=== PATIENT | female | born 1935 | race Hispanic/Latino ===

== ENCOUNTER 2018-12-06 21:18 | Inpatient (IN) ==
--- NOTE | 2018-12-06 23:10 | PROVIDER DOCUMENTATION ---
This chart was entered by Mitzi Lynne Scribe, acting as scribe for Rahul Caputo MD. HPI-General Adult - General Stated Complaint: FALL Time Seen by Provider: 12/06/18 22:10 Source: patient, EMS Allergies/Adverse Reactions: Patient Allergies Allergy/AdvReac Type Severity Reaction Status Date / Time latex Allergy Mild HIVES Verified 10/22/18 01:22 Home Medications: Home Medication List Medication Instructions Recorded Confirmed Last Taken Type ATORVAstatin [Lipitor] 10 mg PO QHS 12/05/18 12/05/18 Unknown History Albuterol Sulfate [Proair Hfa] 2 puff INHALATION DAILY 12/05/18 12/05/18 Unknown History Donepezil [Aricept] 5 mg PO DAILY 12/05/18 12/05/18 Unknown History Insulin Glargine,Hum.rec.anlog 25 units SQ HS 12/05/18 12/05/18 Unknown History [Lantus Solostar] Multivit-Min/Folic Acid/Vit K1 1 tab PO DAILY 12/05/18 12/05/18 Unknown History [Multi For Her 50 Plus Softgel] Mv,Calcium,Min/Iron/Folic/Vitk 12/05/18 Unknown History [Multi For Her Tablet] Oxycodone HCl 5 mg PO Q6H PRN PRN 12/05/18 12/05/18 Unknown History Whbflgbxxwfy-Gnbm-Rjzoqziq,Iso 4.5 gm IV Q8HR 12/05/18 12/05/18 Unknown History [Zosyn 4.5 gm Pre-Mix Bag] Sertraline [Zoloft] 50 mg PO DAILY 12/05/18 12/05/18 Unknown History Sitagliptin Phos/Metformin HCl 1 tab PO BID 12/05/18 12/05/18 Unknown History [Janumet 50-1,000 mg Tablet] - History of Present Illness -Gen Adult Nature of Presenting Problems: pt is a 83 yr old female presenting via EMS post fall. unknown cause of fall, pt denies any injury, pt was found leaning against wall, unsure of how pt landed. pt denies any neck or back pain. Location of Pain/Injury: reports: none Quality of Pain: reports: none Onset/Duration: reports: unsure Context/Activities at Onset: reports: recent trauma history (fall) Modifying Factors: improves with: nothing Associated Symptoms: denies: back/neck pain, chest pain, joint pain, nausea, shortness of breath, vomiting Recently seen or treated by another doctor?: Yes (seen here 1 day ago for AMS) Review of Systems - Adult - REVIEW OF SYSTEMS - ADULT ROS:: limited due to language barrier Constitutional: reports: no symptoms reported Eyes: reports: no symptoms reported Ears, Nose, Mouth & Throat: reports: no symptoms reported Cardiovascular: denies: chest pain, syncope Respiratory: denies: shortness of breath Gastrointestinal: denies: abdominal pain, nausea, vomiting Genitourinary: reports: no symptoms reported Musculoskeletal: denies: back pain, joint pain, neck pain Integumentary: reports: no symptoms reported Neurological: reports: no symptoms reported Psychiatric: reports: no symptoms reported Endocrine: reports: no symptoms reported Hematologic/Lymphatic: reports: no symptoms reported Allergic/Immunologic: reports: no symptoms reported All Other Systems: Reviewed and Negative Past History - Adult - PAST MEDICAL HISTORY-ADULT Review of Records: reports: Old Records Reviewed, Nursing Assessment Review, Medications Reviewed, Social history reviewed & non-contributory. Major Childhood Illnesses: reports: denies history Cardiovascular: reports: denies history Respiratory: reports: denies history Gastrointestinal: reports: denies history Obstetrical/Gynecological: reports: denies history Genitourinary: reports: denies history Musculoskeletal: reports: denies history Neurological: reports: denies history Endocrine/Immune: reports: denies history Other Conditions: reports: denies history - IMMUNIZATION STATUS Childhood Immunizations: See Nurse Assessment Flu Vaccine: See Nurse Assessment - FAMILY HISTORY Family History: reviewed, not pertinent - SOCIAL HISTORY Living Situation: family Physical Exam-General - PHYSICAL EXAM-ADULT Initial Vital Signs Reviewed: Yes - CONSTITUTIONAL General Appearance: appears well, alert, no apparent distress - EYES Eyes: PERRL/EOMI - HEAD, EARS, NOSE, MOUTH & THROAT HENMT: normocephalic/atraumatic, moist mucous membranes - NECK Neck: non-tender, full range of motion, supple, normal inspection - RESPIRATORY Respiratory: chest non-tender, lungs clear, normal breath sounds - CARDIOVASCULAR Cardiovascular: normal peripheral pulses, regular rate, rhythm, no edema - GASTROINTESTINAL (ABDOMEN) Abdominal Exam: normal bowel sounds, non tender, soft - LYMPHATIC Lymphatic: no adenopathy - MUSCULOSKELETAL Back Exam: normal inspection, no CVA tenderness, no vertebral tenderness Extremity: tenderness (with movement, LLE), other (Left 4th toe amputation.). negative: normal range of motion (decreased ROM LLE), deformity - SKIN Integumentary: normal color, normal turgor, warm/dry, other (healing wound at the place of amputated 4th left toe.) - NEUROLOGIC Neurologic: grossly normal - PSYCHIATRIC Psych/Mental Status: normal mood/affect Progress - PLAN OF CARE/RESULTS Progress/Plan/Lab Results: Orders Category Date Time Status CT HEAD/C-SPINE W/O CONTRAST [CT] Stat Exams 12/06/18 22:[address] PELVIS W/O CONTRAST [CT] Stat Exams 12/06/18 22:11 Ordered FEMUR MIN 2 VIEWS LEFT [RAD] Stat Exams 12/06/18 22:11 Ordered family not at bedside. RN tried calling family, no answer - CT/MRI 1 CT Study: Pelvis Impression: Abnormal, See EMR Report 2 CT Study: Pelvis Impression: Abnormal, See EMR Report 3 CT Study: Head Impression: Normal, See EMR Report - CONSULTS/PCP/HOSPITALIST Notification #1 *Consult/PCP/Hospitalist*: Dr verma Time Discussed: 00:10 Reason/Comments: consult for plan of care Consult Disposition: Admit (admit to hospitalist) #2 Consult: Dr Echevarria Time Discussed: 00:50 Consult Disposition: Admit Departure - Departure Date of Disposition Decision: 12/07/18 Time of Disposition Decision: 00:58 DIAGNOSIS: Fracture of left inferior pubic ramus, Fall, Compression fracture of T1 vertebra, Compression fracture of T2 vertebra Disposition: ADMITTED INPATIENT 09 Certified Medical Emergency: Emergent Condition: Stable Referrals and Follow-Ups: None,PCP [Primary Care Provider] - - Critical Care Note This patient required my direct & personal management of CC.: No Attestation - Physician/ ANITA Attestation Patient care was provided by Advanced Practice Provider:: No The physician spent face to face time with patient:: Yes Advanced Practice Provider documentation review:: Supervising physician onsite and consulted in the evaluation and care of this patient. The physician did have a face to face encounter with the patient. This chart was documented by the igor scribe, (Mitzi Lynne Scribe) and accurately reflects the services I performed and decisions made by me, Rahul Caputo MD, as attested by the provider's signature.
[2018-12-07 02:56] LABS: INR 1.08; PROTIME 14.2 Seconds (11.0-16.0)
[2018-12-07 02:57] LABS: PTT 27.6 Seconds (22.3-41.8)
[2018-12-07 03:03] LABS: URINE SOURCE CATH
[2018-12-07 03:10] LABS: BILIRUBIN URINE NEGATIVE (NEGATIVE); BLOOD URINE SMALL (NEGATIVE); COLOR YELLOW; GLUCOSE URINE TRACE mg/dL (NEGATIVE); KETONE URINE NEGATIVE (NEGATIVE); LEUKOCYTES URINE NEGATIVE (NEGATIVE); NITRITE URINE NEGATIVE (NEGATIVE); PH URINE 5.5; PROTEIN URINE 100 mg/dL (NEGATIVE); SP GRAVITY URINE 1.023; TURBIDITY URINE CLEAR (CLEAR); UROBILINOGEN URINE NORMAL (NORMAL)
[2018-12-07 03:11] LABS: UR EPITHELIAL CELLS <10 /HPF (<10); URINE BACTERIA NEGATIVE /HPF; URINE RBC <10 /HPF (<10); URINE WBC <10 /HPF (<10)
[2018-12-07] MEDS: NS 1,000 ML IV SCH ×2 (03:12→17:44)
[2018-12-07] MEDS: ZOFRAN IV PRN ×2 (03:16→21:39)
[2018-12-07] MEDS: MORPHINE IV PRN ×2 (03:16→21:36)
[2018-12-07 03:22] LABS: AGAP 13; ALBUMIN 3.7 g/dL (3.5-5.0); ALKALINE PHOSPHATASE 74 U/L (32-104); BUN 18 mg/dL (8-22); CALCIUM 9.1 mg/dL (8.8-10.2); CHLORIDE 103 mmol/L (98-107); COSMO 283; CREATININE 0.5 mg/dL (0.5-0.9); ESTIMATED GFR > 60; GLUCOSE 171 mg/dL (70-104); GOT 22 U/L (10-30); GPT 14 U/L (10-36); POTASSIUM 4.3 mmol/L (3.5-5.1); SODIUM 139 mmol/L (136-145); TCO2 23 mmol/L (25-35); TOTAL BILIRUBIN 0.48 mg/dL (0.20-1.00); TOTAL PROTEIN 7.3 g/dL (6.3-8.3)
[2018-12-07 03:25] LABS: BASO# 0.02 X1000 (0.0-0.2); BASO% 0.2 % (0.0-0.8); EOS# 0.14 X1000 (0.0-0.7); EOS% 1.3 % (0.0-10.0); HEMATOCRIT 34.2 % (37.0-47.0); IMM GRAN# 0.03 X1000 (0.0-0.04); IMM GRAN% 0.3 % (0.0-0.5); LYMPH# 1.46 X1000 (1.2-3.4); LYMPH% 13.5 % (20.5-51.1); MCH 28.8 PG (27-31); MCHC 32.2 g/dL (33-37); MCV 89.5 FL (81-99); MONO# 0.76 X1000 (0.11-0.59); MONO% 7.1 % (1.7-9.3); NEUT# 8.37 X1000 (1.4-6.5); NEUT% 77.6 % (42.2-75.2); PLT 209 X1000 (130-400); RBC 3.82 XMIL (4.2-5.4); RDW 14.9 % (11.5-14.5); WBC 10.78 X1000 (4.8-10.8)
--- NOTE | 2018-12-07 06:43 | HISTORY AND PHYSICAL ---
CHIEF COMPLAINT: Fall. HISTORY OF PRESENT ILLNESS: This is an elderly demented female, 83 years old. She comes in after having a fall, unknown cause of the fall. No family was at bedside. [employer] DAHL helped with the translation. Apparently the patient was found leaning against the wall. Unsure how long the patient was there or how she landed. Stated that she did not think she hit her head or have loss of consciousness. Again, very poor historian related to dementia. She has no complaint at this time except a small amount of pain in her hip. I believe that she does have a past medical history of diabetes mellitus, hypertension, and Alzheimer's. This was all the information I could find out about the patient. A CT scan was obtained of the pelvis that showed a fracture of the left inferior pubic ramus. CT of her head, the report is pending, but it was preliminary normal. She will be admitted for evaluation and treatment. PAST MEDICAL HISTORY: See HPI. This may not be a complete list. PREVIOUS SURGICAL HISTORY: 1. Bilateral knee surgery. 2. Left third and fourth digit removed on her lower extremity, I believe this was 2 days ago; however, I am not sure at which hospital. ALLERGIES: Latex. She lives at home with her daughter. No family at bedside. She states no alcohol, tobacco or illicit drugs. FAMILY HISTORY: She was unable to give us this information. HOME MEDICATIONS: She states that she does take home medications; however, she does not know which medications. PHYSICAL EXAMINATION: VITAL SIGNS: Temp 97.7 degrees, pulse 73, respirations 15, blood pressure 196/87, oxygen saturation 97% on room air. GENERAL: Pleasantly confused 83-year-old female lying in the ER stretcher. Oriented only to person. She is in no acute distress. HEENT: Head is atraumatic, normocephalic. Pupils equal, round and reactive to light. Extraocular eye movement is intact. Sclerae anicteric. Conjunctivae mildly pale. Oral mucosa is mildly dry. NECK: Supple. No JVD. Trachea is midline. No cervical lymphadenopathy. CARDIAC: S1, S2 appreciated. No murmurs, gallops, rubs. LUNGS: Clear to auscultation bilaterally. No rhonchi, wheezes, rales. Symmetrical rise and fall of respirations. ABDOMEN: Soft, nondistended, nontender. Bowel sounds present all 4 quadrants. Normoactive. No pulsatile mass. No organomegaly. EXTREMITIES: No cyanosis, clubbing or edema. 1+ pedal pulses bilaterally. Left lower extremity has third and fourth digit recently removed. The wound appears to be clean, dry and intact. Has wet-to- dry dressing that was removed. NEUROLOGICAL: Oriented only to person. Cranial nerves 2-12 appear to be grossly intact. DIAGNOSTIC DATA: CT of the head: Chronic ischemic microvascular changes. CT of the pelvis shows a fracture of the left inferior pubic ramus. LABORATORY DATA: Pending. ASSESSMENT AND PLAN: 1. Left inferior pubic ramus fracture. Morphine as needed for pain. Consult Ortho. NPO after midnight. Booker catheter to be placed. Check coags and type and screen for blood products. 2. Diabetes mellitus. Start sliding scale insulin and fingerstick blood sugars. Check hemoglobin A1c. 3. Hypertension. I am unsure if the patient takes medication at home. She is hypertensive at this time; however, she is in pain. We will treat the patient's pain at this time and continue to monitor blood pressure. Can add medication if needed. 4. Alzheimer's, aware. We will restart home medications when available. Further recommendations per patient's clinica course. Dictated by NABIL Carr for Juno Echevarria MD cc: NABIL Carr MD Limited history due to language and cognitive issues. Treat symptomatically and plan for NH transfer. No family at bedside to shed more light on patient's history. [facility]
[2018-12-07] MEDS: HUMALOG SUBQ SCH ×4 (07:00→21:37)
--- NOTE | 2018-12-07 07:16 | Diag Imaging Result Doc PS360 ---
EXAM: FEMUR MIN 2 VIEWS LEFT 12/06/2018 HISTORY: fall TECHNIQUE: Left femur four views COMMENT: There has been previous internal fixation of the femur. There is marked osteopeniaThere has been internal fixation of the patella. There is extensive arterial calcification. There are no previous radiographs available for comparison. There are fractures of the superior and inferior pubic rami of uncertain age. The possibility of an insufficiency fracture of the sacrum on the left cannot be excluded. IMPRESSION: Apparent acute fracture of the superior pubic ramus on the left, inferior pubic ramus fracture of indeterminate age, and possible insufficiency fracture of the left sacrum. Electronically signed by Dann Butt 12/07/2018 7:13 AM
--- NOTE | 2018-12-07 07:18 | Diag Imaging Result Doc PS360 ---
EXAM: CT PELVIS W/O CONTRAST 12/06/2018 HISTORY: fall TECHNIQUE: This exam was performed using automated exposure control, adjustment of mA or kV according to patient size, and/or use of iterative reconstruction technique. COMMENT: There is marked osteopenia. There is cortical irregularity in the left sacral cassie suggesting a nondisplaced sacral insufficiency fracture. There is what appears to be an acute fracture of the superior pubic ramus on the left. There has been previous internal fixation of a proximal left femoral fracture. There is what appears to be a healed fracture of the inferior pubic ramus on the left. There are no abnormal fluid collections demonstrated. IMPRESSION: Insufficiency fracture complex on the left as described above. Electronically signed by Dann Butt 12/07/2018 7:16 AM
--- NOTE | 2018-12-07 07:33 | Diag Imaging Result Doc PS360 ---
EXAM: CT HEAD/C-SPINE W/O CONTRAST INDICATION: fall TECHNIQUE: This exam was performed using automated exposure control, adjustment of mA or kV according to patient size, and/or use of iterative reconstruction technique. COMPARISON: CT head dated 12/05/2018 FINDINGS: Head: There is stable encephalomalacia underlying a right parietal craniotomy defect. There is stable white matter microangiopathy. There is no definite acute infarct given the limited sensitivity of CT versus MRI. There is no discrete intracranial mass, mass effect, or intracranial hemorrhage. The surrounding soft tissues are essentially unremarkable. The calvaria is intact. C-spine: There is advanced multilevel degenerative facet arthropathy. There is erosion at the posterior aspect of the dens with surrounding pannus or pseudopannus. Otherwise, there is no discrete fracture, subluxation, or intrinsic osseous lesion. There is very minimal loss of vertebral body height at the superior endplates of T1 and T2 that appears chronic. The surrounding soft tissues are essentially unremarkable. IMPRESSION: 1.Stable chronic changes as described. No evidence of acute intracranial pathology. 2.Multilevel degenerative arthropathy as described. No evidence of fracture or other definite acute C-spine injury. Electronically signed by Jose Smith 12/07/2018 7:31 AM
--- NOTE | 2018-12-08 00:25 | ORTHOPAEDICS CONSULTATION ---
DATE: 12/07/2018 CHIEF COMPLAINT: Pain after a fall. HISTORY OF PRESENT ILLNESS: Ms. Nelson is an 83-year-old female with a past medical history of dementia, diabetes mellitus, hypertension, with a recent fall. Ms. Nelson is a very poor historian related to her Alzheimer's. She does not have any family at the bedside with her. Apparently, she presented to the [facility] Emergency room after having a fall. The cause of the fall is unknown. She was alert at the time that she was found. I am really not sure how she even came into the emergency room, but when she was brought to the [facility] ER, a CT scan of the pelvis did show a left inferior pubic rami fracture. She does not seem to be in any pain at the present. She is actually sitting in her bed and eating. PAST MEDICAL HISTORY: 1. Alzheimer's. 2. Diabetes mellitus type 2. 3. Primary essential hypertension. PREVIOUS SURGICAL HISTORY: 1. Bilateral knee surgery. 2. 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 ALLERGIES: Latex. FAMILY HISTORY: Noncontributory. HOME MEDICATIONS: Unknown at present. PHYSICAL EXAMINATION: Vital Signs: Temperature 97.6, pulse 69, respirations 16, blood pressure 164/62. She is 96% on room air. General: This is an 83-year-old female in no acute distress. Neurologic: She is alert. She is not oriented and she is not answering questions appropriately. I also think there is a little bit of a language barrier. HEENT: Head is atraumatic, normocephalic. Pupils equal, round, reactive to light. Cardiovascular: Regular rate and rhythm. Pulmonary: Breathing is even and nonlabored. Chest expansion is equal. Abdomen: Appears nondistended. Extremities: There is no obvious tenderness to palpation to any extremity. She does have 1+ pedal pulses bilaterally. No significant swelling, ecchymosis, or skin ulcerations or abrasions. She did have a recent 3rd and 4th toe removal. That all looks nice and clean. DIAGNOSTIC DATA: CT of the pelvis shows a left inferior pubic ramus fracture. ASSESSMENT: Left inferior pubic ramus fracture. PLAN: We are going to treat for pain as needed. We do want to kind of wean her off the IV and let her start taking some oral medication. We will consult Physical Therapy. She can weight bear as tolerated. She has been NPO, but we are going to let her eat. There is nothing surgical to do at this point. This will mostly be a pain control thing and getting her back mobilizing with physical therapy. She can follow up with Dr. Rosado in clinic. Thank you for the consultation. Dictated by NABIL Hobson for Ric Rosado MD cc: NABIL Hobson MD
[2018-12-08] MEDS: ZOFRAN IV PRN (06:39)
[2018-12-08] MEDS: MORPHINE IV PRN (06:39)
[2018-12-08] MEDS: HUMALOG SUBQ SCH ×4 (07:05→21:37)
[2018-12-08] MEDS: NS 1,000 ML IV SCH ×2 (07:40→14:03)
[2018-12-08] MEDS: TYLENOL PO PRN ×2 (07:40→14:02)
[2018-12-08 07:49] LABS: BASO# 0.02 X1000 (0.0-0.2); BASO% 0.2 % (0.0-0.8); EOS# 0.53 X1000 (0.0-0.7); EOS% 6.6 % (0.0-10.0); HEMOGLOBIN 9.9 g/dL (12.0-16.0); IMM GRAN# 0.02 X1000 (0.0-0.04); IMM GRAN% 0.2 % (0.0-0.5); LYMPH# 1.54 X1000 (1.2-3.4); LYMPH% 19.2 % (20.5-51.1); MCH 28.5 PG (27-31); MCHC 31.9 g/dL (33-37); MCV 89.3 FL (81-99); MONO% 7.5 % (1.7-9.3); MPV 10.1 FL (7.4-10.4); NEUT# 5.33 X1000 (1.4-6.5); NEUT% 66.3 % (42.2-75.2); PLT 187 X1000 (130-400); RBC 3.47 XMIL (4.2-5.4); RDW 14.4 % (11.5-14.5); WBC 8.04 X1000 (4.8-10.8)
[2018-12-08 08:21] LABS: AGAP 11; BUN 10 mg/dL (8-22); CALCIUM 8.5 mg/dL (8.8-10.2); CHLORIDE 103 mmol/L (98-107); COSMO 280; CREATININE 0.5 mg/dL (0.5-0.9); ESTIMATED GFR > 60; GLUCOSE 133 mg/dL (70-104); POTASSIUM 3.4 mmol/L (3.5-5.1); SODIUM 140 mmol/L (136-145); TCO2 26 mmol/L (25-35)
--- NOTE | 2018-12-08 12:08 | ORTHOPAEDICS PROGRESS NOTE ---
DATE: 12/08/2018 SUBJECTIVE: Patient is an 83-year-old female who was admitted to the hospital following a recent fall. She underwent evaluation. X-rays revealed a left inferior rami fracture and left sacral ala insufficiency fracture. She is currently resting comfortably. The patient; however, is somewhat agitated this morning. She does have underlying Alzheimer's dementia. PHYSICAL EXAMINATION: The patient's bilateral lower extremity compartments are soft. She has no significant discomfort with gentle range of motion of the hips. IMPRESSION: Left inferior rami fracture and left sacral insufficiency fracture. PLAN: At this point, we will attempt to mobilize with physical therapy with weightbearing as tolerated. We will consult [facility] Contact [facility] Team Leader for discharge planning. cc: Ric Rosado MD
--- NOTE | 2018-12-08 13:01 | PROGRESS NOTE ---
DATE: 12/08/2018 SUBJECTIVE: Patient reports feeling fine. Very hard of hearing, but reports that pain is under control. She reports feeling very weak. OBJECTIVE: Vital Signs: Temperature 97.8 degrees, heart rate 71, respiratory rate 18, blood pressure 151/60, O2 saturation 95% on room air. General: This is an 83-year-old female lying in bed, in no acute distress. Cardiovascular: S1, S2 heard. No murmurs, gallops, or rubs. Regular rate and rhythm. Respiratory: Clear bilaterally to auscultation. No work of breathing or using accessory muscles. Abdomen: Soft, nontender to palpation. Bowel sounds present. No organomegaly. Extremities: No clubbing, cyanosis, or edema. Peripheral pulses present in both legs. Neurological: The patient is somehow confused, oriented in person, but not place or time. Moves 4 extremities spontaneously. She has coherent speech but is slow. Patient is hard of hearing. LABORATORY DATA: White cell count 8.04, hemoglobin 9.9, hematocrit 31.0, platelets 197,000 with BMP remarkable for potassium 3.4. Glucose 133. ASSESSMENT AND PLAN: 1. Left inferior pubic ramus fracture. Orthopedic thinks that there is no surgical option for her. They recommend physical therapy and pain medications. That is what we are doing. I think we need to find a place for her for rehab facility. Apparently, she lives by herself. 2. Diabetes mellitus type 2. We will continue with sliding scale insulin and Accu-Chek before meals and also at bedtime. 3. Hypertension. At admission, it was not sure if she takes blood pressure medications. Overnight her blood pressure has reached 200. I think at this point, we will start lisinopril 10 mg p.o. b.i.d. 4. Alzheimer's disease, aware. We will continue home medications. 5. Disposition. Physical therapy and occupational therapy has been consulted. Also licensed master social worker will be consulted for rehab placement. cc: William Sanchez MD
[2018-12-08] MEDS: PRINIVIL PO SCH ×2 (14:01→21:47)
[2018-12-09] MEDS: MORPHINE IV PRN (03:49)
[2018-12-09] MEDS: NS 1,000 ML IV SCH ×3 (03:50→21:33)
[2018-12-09 06:45] LABS: HEMATOCRIT 29.1 % (37.0-47.0); HEMOGLOBIN 9.2 g/dL (12.0-16.0); MCH 28.7 PG (27-31); MCHC 31.6 g/dL (33-37); MCV 90.7 FL (81-99); RBC 3.21 XMIL (4.2-5.4); RDW 14.6 % (11.5-14.5); WBC 7.04 X1000 (4.8-10.8)
[2018-12-09 06:46] LABS: BASO# 0.01 X1000 (0.0-0.2); BASO% 0.1 % (0.0-0.8); EOS# 0.61 X1000 (0.0-0.7); EOS% 8.7 % (0.0-10.0); IMM GRAN# 0.02 X1000 (0.0-0.04); IMM GRAN% 0.3 % (0.0-0.5); LYMPH# 1.54 X1000 (1.2-3.4); LYMPH% 21.9 % (20.5-51.1); MONO% 8.5 % (1.7-9.3); MPV 9.9 FL (7.4-10.4); NEUT# 4.26 X1000 (1.4-6.5); NEUT% 60.5 % (42.2-75.2); PLT 181 X1000 (130-400)
[2018-12-09] MEDS: HUMALOG SUBQ SCH ×4 (06:47→21:32)
[2018-12-09 07:08] LABS: AGAP 8; BUN 10 mg/dL (8-22); CALCIUM 7.8 mg/dL (8.8-10.2); CHLORIDE 105 mmol/L (98-107); COSMO 282; CREATININE 0.5 mg/dL (0.5-0.9); ESTIMATED GFR > 60; GLUCOSE 158 mg/dL (70-104); POTASSIUM 3.9 mmol/L (3.5-5.1); SODIUM 140 mmol/L (136-145); TCO2 27 mmol/L (25-35)
[2018-12-09] MEDS: TYLENOL PO PRN (08:23)
[2018-12-09] MEDS: PRINIVIL PO SCH ×2 (08:23→21:32)
--- NOTE | 2018-12-09 09:07 | ORTHOPAEDICS PROGRESS NOTE ---
DATE: 12/09/2018 The patient is currently eating breakfast. Her left lower extremity has some mild discomfort with gentle gentleman movement. Calf is soft. Her dressing is intact from recent 3rd and 4th toe removal. IMPRESSION: Left inferior rami fracture and left sacral insufficiency fracture. PLAN: At this point, the patient will be continue to be weight bear as tolerated. Analytical Scientist will be consulted for discharge planning and will be available if needed. I would recommend repeat x-ray in a few weeks. cc: Ric Rosado MD
--- NOTE | 2018-12-09 12:19 | PROGRESS NOTE ---
DATE: 12/09/2018 SUBJECTIVE: The patient is a little bit sleepy today. Very hard of hearing but reports pain is under control. OBJECTIVE: Vital Signs: Temperature 98.5 degrees, heart rate 65, respiratory rate 18, blood pressure 172/53, O2 saturation 95% on room air. General Examination: This is an 83-year-old, female lying in bed, in no acute distress. Cardiovascular Examination: S1 and S2 heard. No murmurs, gallops, or rubs. Regular rate and rhythm. Respiratory Examination: Clear bilaterally to auscultation. No work of breathing or using accessory muscles. Abdomen: Soft, nontender to palpation. Bowel sounds present. No organomegaly. Extremities: No clubbing, cyanosis, or edema. Peripheral pulses present in both legs. Neurological Examination: The patient is sometimes confused. Oriented in person, not in place or time. Moves 4 extremities spontaneously. Laboratory Data: Reviewed. ASSESSMENT AND PLAN: 1. Left inferior pubic ramus fracture. As per orthopedics, the patient requires physical therapy and pain medication. No surgical option for her warranted. 2. Diabetes mellitus type 2. We will continue with sliding scale insulin, and Accu-Chek before meals and also at bedtime. 3. Hypertension. We have started her yesterday on lisinopril. Blood pressure is a little bit high so at this point, I am planning to start her on amlodipine. We will see how she does. 4. Alzheimer's disease. Aware. We will continue home medications. 5. Disposition. At this point, we will continue providing physical therapy, occupational therapy, and she needs to go to a rehab facility so a social work supervisor has been already notified. cc: William Sanchez MD
[2018-12-09] MEDS: NORVASC PO SCH (21:32)
[2018-12-10] MEDS: HUMALOG SUBQ SCH ×4 (06:47→22:54)
[2018-12-10 06:52] LABS: BASO# 0.02 X1000 (0.0-0.2); BASO% 0.2 % (0.0-0.8); EOS# 0.68 X1000 (0.0-0.7); EOS% 6.4 % (0.0-10.0); HEMOGLOBIN 9.3 g/dL (12.0-16.0); IMM GRAN# 0.02 X1000 (0.0-0.04); IMM GRAN% 0.2 % (0.0-0.5); LYMPH# 1.57 X1000 (1.2-3.4); LYMPH% 14.9 % (20.5-51.1); MCH 28.6 PG (27-31); MCHC 32.1 g/dL (33-37); MCV 89.2 FL (81-99); MONO% 6.6 % (1.7-9.3); MPV 10.1 FL (7.4-10.4); NEUT# 7.57 X1000 (1.4-6.5); NEUT% 71.7 % (42.2-75.2); PLT 220 X1000 (130-400); RBC 3.25 XMIL (4.2-5.4); RDW 14.1 % (11.5-14.5); WBC 10.56 X1000 (4.8-10.8)
[2018-12-10 07:09] LABS: AGAP 10; BUN 8 mg/dL (8-22); CALCIUM 7.8 mg/dL (8.8-10.2); CHLORIDE 106 mmol/L (98-107); COSMO 286; CREATININE 0.5 mg/dL (0.5-0.9); ESTIMATED GFR > 60; GLUCOSE 178 mg/dL (70-104); POTASSIUM 3.3 mmol/L (3.5-5.1); SODIUM 142 mmol/L (136-145); TCO2 26 mmol/L (25-35)
--- NOTE | 2018-12-10 09:12 | Diag Imaging Result Doc PS360 ---
EXAM: CHEST-1 VIEW 12/10/2018 HISTORY: REHAB TECHNIQUE: AP portable upright at 0901 COMMENT: The inspiration is suboptimal. Compared to 12/05/2018 otherwise are has been no significant change. IMPRESSION: Stable chest. Electronically signed by Dann Butt 12/10/2018 9:10 AM
[2018-12-10] MEDS: SANTYL OINT TOP SCH (13:21)
[2018-12-10] MEDS: NS 1,000 ML IV SCH ×2 (13:22→17:31)
[2018-12-10] MEDS ORDERED: OXY IR PO PRN (14:07)
[2018-12-10] MEDS ORDERED: PIPERACILLIN TAZO DEXTROSE ISO IV SCH (14:15)
[2018-12-10] MEDS ORDERED: [UNRECOGNIZED DRUG - OTHER] IV SCH (14:15)
--- NOTE | 2018-12-10 14:18 | PROGRESS NOTE ---
DATE: 12/10/2018 SUBJECTIVE: Patient is more awake today. Very hard of hearing. No complaints at this time. OBJECTIVE: Vital Signs: Temperature degrees 97.8, heart rate 71, respiratory rate 18, blood pressure 179/96, O2 saturation 96% on room air. General Examination: This is an 83-year-old female, lying in bed, in no acute distress. Cardiovascular: S1, S2 heard. No murmurs, gallops, or rubs. Regular rate and rhythm. Respiratory: Clear bilaterally to auscultation. No work of breathing or using accessory muscles. Abdomen: Soft, nontender to palpation. Bowel sounds present. No organomegaly. Extremities: No clubbing, cyanosis, or edema. Peripheral pulses present in both legs. Neurological: Patient is sometimes confused but oriented to person. Moves 4 extremities. LABORATORY DATA: Reviewed. ASSESSMENT AND PLAN: 1. Left inferior pubic ramus fracture. The patient reports pain is under control. As per Orthopedics, patient requires physical therapy and pain medication. No surgical option for her warranted at this time. 2. Diabetes mellitus, type 2. We will continue with sliding scale insulin and Accu-Chek before meals and also at bedtime. 3. Hypertension. The patient has been started on lisinopril yesterday. Her blood pressure continues to be high so we are going to increase the dose of lisinopril as well. We will continue to monitor this patient. 4. Alzheimer disease. We will continue home medications. DISPOSITION: At this point, we will continue providing physical therapy, and the patient is awaiting a rehabilitation bed for her. cc: William Sanchez MD
[2018-12-10] MEDS: NORVASC PO SCH ×2 (17:31→22:54)
[2018-12-10] MEDS: PLAVIX PO SCH (17:31)
[2018-12-10] MEDS: ZOSYN 4.5 GM in NS 100 ML IV SCH ×2 (17:32→22:55)
[2018-12-10] MEDS ORDERED: PRINIVIL PO SCH (21:00)
[2018-12-10] MEDS ORDERED: LANTUS INSULIN SUBQ SCH (21:00)
[2018-12-10] MEDS ORDERED: LIPITOR PO SCH (21:00)
[2018-12-11 06:42] LABS: BASO# 0.02 X1000 (0.0-0.2); BASO% 0.2 % (0.0-0.8); EOS# 0.39 X1000 (0.0-0.7); EOS% 4.4 % (0.0-10.0); HEMOGLOBIN 10.1 g/dL (12.0-16.0); LYMPH# 1.55 X1000 (1.2-3.4); LYMPH% 17.7 % (20.5-51.1); MCH 28.6 PG (27-31); MCHC 32.6 g/dL (33-37); MCV 87.8 FL (81-99); MONO# 0.68 X1000 (0.11-0.59); MONO% 7.8 % (1.7-9.3); MPV 9.8 FL (7.4-10.4); NEUT# 6.13 X1000 (1.4-6.5); NEUT% 69.9 % (42.2-75.2); PLT 263 X1000 (130-400); RBC 3.53 XMIL (4.2-5.4); RDW 14.4 % (11.5-14.5); WBC 8.77 X1000 (4.8-10.8)
[2018-12-11] MEDS: ZOSYN 4.5 GM in NS 100 ML IV SCH ×2 (06:48→16:06)
[2018-12-11] MEDS: HUMALOG SUBQ SCH ×2 (06:50→12:28)
[2018-12-11 07:05] LABS: CHLORIDE 105 mmol/L (98-107); POTASSIUM 3.2 mmol/L (3.5-5.1); SODIUM 145 mmol/L (136-145)
[2018-12-11 07:06] LABS: AGAP 14; BUN 8 mg/dL (8-22); CALCIUM 8.3 mg/dL (8.8-10.2); COSMO 289; CREATININE 0.4 mg/dL (0.5-0.9); ESTIMATED GFR > 60; GLUCOSE 131 mg/dL (70-104); TCO2 26 mmol/L (25-35)
[2018-12-11] MEDS ORDERED: THERA M PLUS PO SCH (09:00)
[2018-12-11] MEDS ORDERED: ZOLOFT PO SCH (09:00)
[2018-12-11] MEDS ORDERED: ATACAND PO SCH (09:00)
[2018-12-11] MEDS ORDERED: ARICEPT PO SCH (09:00)
[2018-12-11] MEDS ORDERED: KLOR-CON PO ONE (10:50)
--- NOTE | 2018-12-11 11:18 | DISCHARGE SUMMARY ---
ADMISSION DATE: 12/07/2018 DISCHARGE DATE: 12/11/2018 CONSULTATIONS: Dr. Rosado with orthopedics. PERTINENT PROCEDURES: 1. Pelvis CT, insufficiency fracture, complex on the left. 2. Femur x-ray, apparent acute fracture of the superior pubic ramus on the left, inferior pubic ramus fracture of indeterminate age, and possible insufficiency fracture of the left sacrum. DISCHARGE DIAGNOSES: 1. Left inferior rami fracture and left sacral insufficiency fracture. The patient will continue to be weightbearing as tolerated. She is being discharged to rehabilitation today. Continue with physical therapy. Dr. Rosado recommends a repeat x-ray in a few weeks. 2. Diabetes mellitus type 2. Continue home regimen. 3. Hypertension. Continue home medications. 4. Alzheimer's disease. Continue home medication. 5. Previous wound positive for Pseudomonas. HOSPITAL COURSE: Briefly, Ms. Nelson is an 83-year-old female with a past medical history of dementia, diabetes mellitus, and hypertension, with a recent fall. She presented to [facility] ER after the fall. They did a CT of the pelvis that showed a left inferior pubic rami fracture. The patient was admitted to the hospitalist. Consulted Dr. Rosado with orthopedics. Pain was treated as needed. She was started on physical therapy and is weightbearing as tolerated. She has been accepted to rehab today and will be discharged there to continue her physical therapy. She will follow up with Dr. Rosado in a few weeks for repeat x-rays. VITAL SIGNS: At the time of discharge, temperature is 98 degrees, heart rate 70, respirations 16, blood pressure 150/52, O2 is 95% on room air. DISCHARGED DIET: Diabetic. DISCHARGE MEDICATIONS: 1. Lipitor 10 mg p.o. at bedtime. 2. Aricept 5 mg p.o. daily. 3. Janumet mg 1 tablet p.o. b.i.d. 4. Lantus 25 units subcutaneous at bedtime. 5. Multivitamin 1 tablet p.o. daily. 6. ProAir 2 puffs inhaled daily. 7. Zoloft 50 mg p.o. daily. 8. Oxycodone 5 mg p.o. q.6 hours p.r.n. 9. Zosyn 1.5 g premix bag IV q.8 hours. FOLLOWUP: Ms. Nelson is being discharged to [facility] where she will continue with her physical therapy. Follow up with Dr. Rosado in a few weeks for repeat x- rays. She can return to the ED or call 911 for any worsening of symptoms. Dictated by NABIL Snyder for Jamil Major MD cc: MD Ric Maradiaga MD [facility]
[2018-12-11] MEDS: NORVASC PO SCH (12:26)
[2018-12-11] MEDS: PLAVIX PO SCH (12:26)
[2018-12-11] MEDS: SANTYL OINT TOP SCH (12:27)
[2018-12-11] MEDS ORDERED: PNEUMOVAX 23 IM ONE (14:00)
[2018-12-11 16:56] VITALS: BP 157/53
--- NOTE | 2018-12-12 12:21 | DISCHARGE SUMMARY ---
ADMISSION DATE: 12/07/2018 DISCHARGE DATE: 12/11/2018 At baseline, she tracks with her eyes, but does not really do too much else. Plan will be to transfer her to rehab today. Apparently, she is getting treatment for a right diabetic foot wound that is positive for Pseudomonas. Presumably, this is osteomyelitis, so she has been on Zosyn. This will be continued at the outlying facility until 12/25/2018 per ID recommendations done previously. Initially, we had switched her to Levaquin, but because of osteomyelitis, we will switch her back to Zosyn and see how she does long-term. cc: Jamil Major MD
== END 2018-12-11 18:54 | DRG 536 ==
LOC: SUPCPDRO → ED 21:18 → SUATTDRO 12-07 02:23 → EDIPHOLD 12-07 02:23 → 4N 12-07 08:08
PROVIDERS: ATTEND Internal Medicine

== ENCOUNTER 2019-01-01 10:44 | Inpatient (IN) ==
[2019-01-01] MEDS ORDERED: ATIVAN IV ONE (10:58)
--- NOTE | 2019-01-01 11:04 | PROVIDER DOCUMENTATION ---
HPI-General Adult - General Chief Complaint: Stroke-Like Symptoms Stated Complaint: stroke like sx Time Seen by Provider: 01/01/19 10:50 Source: EMS Allergies/Adverse Reactions: Patient Allergies Allergy/AdvReac Type Severity Reaction Status Date / Time latex Allergy Mild HIVES Verified 01/01/19 14:48 Home Medications: Home Medication List Medication Instructions Recorded Confirmed Last Taken Type ATORVAstatin [Lipitor] 10 mg PO QHS 12/05/18 01/01/19 12/31/18 History Albuterol Sulfate [Proair Hfa] 2 puff INHALATION DAILY 12/05/18 01/01/19 01/01/19 History Donepezil [Aricept] 5 mg PO DAILY 12/05/18 01/01/19 12/31/18 History Insulin Glargine,Hum.rec.anlog 25 units SQ HS 12/05/18 01/01/19 12/31/18 History [Lantus Solostar] Multivit-Min/Folic Acid/Vit K1 1 tab PO DAILY 12/05/18 01/01/19 01/01/19 History [Multi For Her 50 Plus Softgel] Cdxyyjwmyfpe-Rukd-Niqqlfkg,Iso 4.5 gm IV Q8HR 12/05/18 01/01/19 01/01/19 History [Zosyn 4.5 gm Pre-Mix Bag] Sertraline [Zoloft] 50 mg PO DAILY 12/05/18 01/01/19 01/01/19 History Sitagliptin Phos/Metformin HCl 1 tab PO BID 12/05/18 01/01/19 01/01/19 History [Janumet 50-1,000 mg Tablet] Oxycodone HCl 5 mg PO Q6H PRN PRN #30 cap 12/11/18 01/01/19 Unknown Rx Arginine/Glutamine/Calcium Bmb 1 dose PO BID 01/01/19 01/01/19 01/01/19 History [Rafael Packet] Lactobacillus Rhamnosus GG 1 cap PO BID 01/01/19 01/01/19 01/01/19 History [Culturelle] Ondansetron HCl [Zofran] 1 tab PO PRN PRN 01/01/19 01/01/19 Unknown History - History of Present Illness -Gen Adult Nature of Presenting Problems: 83 yr old F with dementia, [facility] concerns of witnessed facial droop and weakness this morning. The pt is bilingual, though in her current state only speaks Amharic, and will not answer all questions asked via tribal delegate. Review of Systems - Adult - REVIEW OF SYSTEMS - ADULT ROS:: limited per condition Constitutional: reports: other (limited per condition) Eyes: reports: other (limited per condition) Ears, Nose, Mouth & Throat: reports: other (limited per condition) Cardiovascular: reports: other (limted per condition) Respiratory: reports: other (limited per condition) Gastrointestinal: reports: other (limited per condition) Genitourinary: reports: other (limited per condition) Musculoskeletal: reports: other (limited per condition) Integumentary: reports: other (limited per condition) Neurological: reports: other (limited per condition) Past History - Adult - PAST MEDICAL HISTORY-ADULT Review of Records: reports: Old Records Reviewed, Nursing Assessment Review Major Childhood Illnesses: reports: denies history Cardiovascular: reports: denies history Respiratory: reports: denies history Gastrointestinal: reports: denies history Obstetrical/Gynecological: reports: denies history Genitourinary: reports: denies history Musculoskeletal: reports: denies history Neurological: reports: denies history Endocrine/Immune: reports: denies history Other Conditions: reports: denies history - IMMUNIZATION STATUS Childhood Immunizations: See Nurse Assessment Flu Vaccine: See Nurse Assessment - FAMILY HISTORY Family History: reviewed, not pertinent Physical Exam-General - PHYSICAL EXAM-ADULT Initial Vital Signs Reviewed: Yes - CONSTITUTIONAL General Appearance: alert, combative, other (is alert, does repsond to questions asked in Amharic, but not all questions, and not always with appropriate answers) - EYES Eyes: PERRL/EOMI - HEAD, EARS, NOSE, MOUTH & THROAT HENMT: normocephalic/atraumatic, moist mucous membranes - RESPIRATORY Respiratory: lungs clear, normal breath sounds - CARDIOVASCULAR Cardiovascular: regular rate, rhythm - GASTROINTESTINAL (ABDOMEN) Abdominal Exam: normal bowel sounds, non tender, soft - MUSCULOSKELETAL Extremity: other (healing amputation of the third toe on the right foot, no apparent signs of infection) - SKIN Integumentary: warm/dry - NEUROLOGIC Neurologic: other (unable to adequately assess, but no obvious facial droop noted; pt actually has good strength of upper and lower extremities) Progress - PLAN OF CARE/RESULTS Progress/Plan/Lab Results: Orders Category Date Time Status CT HEAD W/CONTRAST [CT] Stat Exams 01/01/19 10:56 Ordered CBC WITH ELECTRONIC DIFF [HEME] Stat Lab 01/01/19 10:58 Uncollected CK PROFILE [SP CHEM] Stat Lab 01/01/19 11:00 Ordered COMPREHENSIVE METABOLIC PANEL [CHEM] Stat Lab 01/01/19 10:58 Uncollected PROTIME WITH INR [COAG] Stat Lab 01/01/19 11:00 Ordered PTT [COAG] Stat Lab 01/01/19 11:00 Ordered TROPONIN T Stat Lab 01/01/19 10:58 Uncollected Lorazepam [Ativan] Med 01/01/19 10:58 Discontinued 0.5 mg IV NOW ONE EKG [EKG] Stat Ther 01/01/19 11:00 Ordered Result Diagrams: 01/01/19 11:33 01/01/19 11:33 - REASSESSMENT Reassessment #1 Time Reassessed: 14:00 (Spoke with Irish at [facility] to get a better understanding of the pt's course prior to arrival in the ED. Per her report, pt does have some baseline mental deficit, but is generally alert, oriented to self and place, usually pleasant. yesterday, she began to complain of pain in her neck. This complaint persisted, and this morning, staff noted facial drooping and some acute changes in her personality, which led to her ED visit. I later spoke with Dr. Kelly and relayed this info to him. He does agree that given the elevated WBC, changes in mentation, and unclear etiology, pt will benefit from overnight observation. ) - CT/MRI 1 CT Study: Head Impression: See EMR Report CT Results: chronic changes, no bleed Departure - Departure Date of Disposition Decision: 01/01/19 Time of Disposition Decision: 15:40 DIAGNOSIS: Altered mental state Disposition: ADMITTED INPATIENT 09 Certified Medical Emergency: Emergent Condition: Fair - Critical Care Note This patient required my direct & personal management of CC.: No Attestation - Physician/ ANITA Attestation Patient care was provided by Advanced Practice Provider:: No The physician spent face to face time with patient:: Yes Advanced Practice Provider documentation review:: Supervising physician onsite and consulted in the evaluation and care of this patient. The physician did have a face to face encounter with the patient.
--- NOTE | 2019-01-01 11:39 | Diag Imaging Result Doc PS360 ---
EXAM: CT HEAD W/O CONTRAST HISTORY: stroke like symptoms TECHNIQUE: CT head without contrast COMPARISON: 12/06/2018 FINDINGS: No parenchymal hemorrhage. No epidural or subdural hematoma. No subarachnoid hemorrhage. There has been a right craniotomy and there is associated encephalomalacia. There is also atrophy with chronic microvascular ischemic changes. No mass identified on this noncontrasted exam. No hydrocephalus. No sinus opacification. IMPRESSION: No hemorrhage. Encephalomalacia with chronic microvascular ischemic changes. This exam was performed using automated exposure control, adjustment of mA or kV according to patient size, and/or use of iterative reconstruction technique. Electronically signed by Kuldeep Barrientos 01/01/2019 11:37 AM
[2019-01-01 11:47] LABS: BASO# 0.02 X1000 (0.0-0.2); BASO% 0.1 % (0.0-0.8); EOS# 0.11 X1000 (0.0-0.7); EOS% 0.8 % (0.0-10.0); HEMATOCRIT 38.4 % (37.0-47.0); HEMOGLOBIN 12.2 g/dL (12.0-16.0); IMM GRAN# 0.03 X1000 (0.0-0.04); IMM GRAN% 0.2 % (0.0-0.5); LYMPH# 2.03 X1000 (1.2-3.4); LYMPH% 14.1 % (20.5-51.1); MCHC 31.8 g/dL (33-37); MCV 88.3 FL (81-99); MONO# 1.26 X1000 (0.11-0.59); MONO% 8.7 % (1.7-9.3); NEUT# 10.96 X1000 (1.4-6.5); NEUT% 76.1 % (42.2-75.2); PLT 241 X1000 (130-400); RBC 4.35 XMIL (4.2-5.4); RDW 14.5 % (11.5-14.5); WBC 14.41 X1000 (4.8-10.8)
[2019-01-01 11:53] LABS: INR 1.14; PROTIME 14.7 Seconds (11.0-16.0)
[2019-01-01 11:54] LABS: PTT 28.8 Seconds (22.3-41.8)
[2019-01-01 12:08] LABS: AGAP 17; ALB/GLOB RATIO 0.9; ALBUMIN 3.6 g/dL (3.5-5.0); ALKALINE PHOSPHATASE 241 U/L (32-104); BUN 12 mg/dL (8-22); CALCIUM 9.2 mg/dL (8.8-10.2); CHLORIDE 96 mmol/L (98-107); COSMO 286; CREATININE 0.6 mg/dL (0.5-0.9); ESTIMATED GFR > 60; GLUCOSE 249 mg/dL (70-104); GOT 18 U/L (10-30); GPT 13 U/L (10-36); POTASSIUM 3.7 mmol/L (3.5-5.1); SODIUM 139 mmol/L (136-145); TCO2 26 mmol/L (25-35); TOTAL BILIRUBIN 1.88 mg/dL (0.20-1.00); TOTAL PROTEIN 7.4 g/dL (6.3-8.3)
--- NOTE | 2019-01-01 12:21 | EKG Report ---
Test Performed on : 01/01/2019 11:51:12 AM Test Reason : CP Blood Pressure : / mmHG Vent. Rate : 097 BPM Atrial Rate : 097 BPM P-R Int : 154 ms QRS Dur : 088 ms QT Int : 362 ms P-R-T Axes : 077 057 041 degrees QTc Int : 459 ms Sinus rhythm. with premature supraventricular complexes. Otherwise normal ECG No previous ECGs available Unconfirmed Result
[2019-01-01] MEDS ORDERED: NS 1,000 ML IV ONE (12:34)
--- NOTE | 2019-01-01 12:35 | Diag Imaging Result Doc PS360 ---
CHEST-1 VIEW - 01/01/2019 INDICATION: fever COMPARISON: 12/10/2018 FINDINGS: Stable bilateral central lines. No significant infiltrates. Heart size is normal. IMPRESSION: No acute disease. Electronically signed by Jorge Gautam 01/01/2019 12:33 PM
[2019-01-01 12:40] LABS: URINE SOURCE CATH
[2019-01-01 12:44] LABS: BILIRUBIN URINE NEGATIVE (NEGATIVE); BLOOD URINE MODERATE (NEGATIVE); COLOR YELLOW; GLUCOSE URINE 1000 mg/dL (NEGATIVE); KETONE URINE 40 mg/dL (NEGATIVE); LEUKOCYTES URINE NEGATIVE (NEGATIVE); NITRITE URINE NEGATIVE (NEGATIVE); PH URINE 7.5; PROTEIN URINE 600 mg/dL (NEGATIVE); SP GRAVITY URINE 1.014; TURBIDITY URINE CLEAR (CLEAR); UROBILINOGEN URINE NORMAL (NORMAL)
[2019-01-01 12:57] LABS: UR EPITHELIAL CELLS <10 /HPF (<10); URINE BACTERIA NEGATIVE /HPF; URINE WBC <10 /HPF (<10)
[2019-01-01 13:06] LABS: URINE CASTS NONE SEEN; URINE CRYSTALS NONE SEEN; URINE SMALL ROUND CELLS NONE SEEN; URINE YEAST PRESENT
[2019-01-01] MEDS ORDERED: APRESOLINE IV ONE (13:41)
[2019-01-01] MEDS ORDERED: MORPHINE IV ONE (14:21)
[2019-01-01] MEDS ORDERED: VANCOMYCIN IV PER PHARMACY MISC SCH (14:31)
[2019-01-01] MEDS: ZOFRAN IV PRN (14:34)
[2019-01-01] MEDS ORDERED: ASPIRIN PR ONE (14:49)
[2019-01-01 14:51] LABS: ALLEN TEST YES; BE 3.3 mmoll (-3.0-3.0); BLOOD TYPE ARTERIAL; HCO3-(ACT) 27.4 mmoll (20.0-26.0); PCO2(98.6) 41 mmHg (35-45); PO2(98.6) 62 mmHg (60-100); SAMPLE BLOOD; pH(98.6) 7.44 (7.35-7.45)
[2019-01-01 14:54] LABS: MODALITY ROOM AIR
--- NOTE | 2019-01-01 15:25 | HISTORY AND PHYSICAL ---
CHIEF COMPLAINT: Encephalopathy, sepsis. HISTORY OF PRESENT ILLNESS: The patient is an 83-year-old, female who was admitted here about a month ago with a fall. She was found to have a left inferior pubic ramus fracture. Also found to have a likely left diabetic foot wound osteomyelitis. Orthopedics recommended a nonsurgical treatment of her pubic fracture and her ulcer. She was placed on Zosyn which should have finished not quite a week ago. She was discharged to rehab at that time. Today, she reportedly had increased confusion and possibly a left facial droop at the rehab and was sent here for further evaluation. On arrival here, no facial droop or other focal neurologic sign could be identified but patient was significantly confused, completely noncooperative. She exclaims verbally but does not answer questions or follow commands at all. The patient is bilingual at baseline but is speaking only Kinyarwanda currently. Interpretation was attempted but patient was not cooperative secondary to her altered mental status. On initial evaluation in the ED, the patient was noted to be febrile with leukocytosis and mild elevation in lactate, as well as other incidental findings as below, so she was admitted for further evaluation and treatment. Suspect infection of her diabetic foot ulcer. Unable to get a good review of systems but the patient thus far has not complained of any respiratory or GI symptoms. REVIEW OF SYSTEMS: Unable to obtain secondary to patient's mental status. ALLERGIES: Latex. PAST MEDICAL HISTORY: Diabetes, hypertension, hyperlipidemia, dementia, pubic ramus fracture, left foot diabetic ulcer. PAST SURGICAL HISTORY: Bilateral knee surgeries, left 3rd and 4th toe amputations. SOCIAL HISTORY: No known tobacco, alcohol, or illicit drug use but unable to confirm with patient. FAMILY HISTORY: Unable to obtain secondary to patient's mental status. LABS: WBC 14.4, hemoglobin 12.2, hematocrit 38.4, platelets 241,000. INR 1.14. Sodium 139, potassium 3.7, bicarb 26, BUN 12, creatinine 0.6, glucose 249. Bilirubin 1.88, AST 18, ALT 13, alkaline phosphatase 241, lactate 3.3. Troponin negative. Urinalysis with blood, ketones, glucose, no white cells, 10 to 20 red cells, no bacteria. IMAGING: Chest x-ray with no acute process. CT of head, no bleed. Encephalomalacia with chronic microvascular ischemic changes. C-spine CT and right upper quadrant ultrasound pending. VITALS: T-max 100.6 degrees, pulse 114, respiratory rate 20, blood pressure 200/100, O2 saturation 92% on room air. PHYSICAL EXAMINATION: GENERAL: Mildly anxious-appearing. VITALS: As above. HEENT: Normocephalic, atraumatic. Minimally dry mucous membranes. No cervical adenopathy. Neck is supple. CARDIOVASCULAR: Patient is tachycardic but regular. Loud left upper sternal border murmur noted. Mclain noted in the right upper chest with no surrounding erythema, induration, fluctuance, or other sign of infection. PULMONARY: Clear to auscultation bilaterally. ABDOMEN: Soft. No obvious tenderness. No guarding or rebound. Bowel sounds positive. EXTREMITIES: Peripheral pulses decreased but present. Left foot with 2 toes amputated. In between the last 2 toes that she still has, there is a deep ulcer, some eschar at the bottom making staging difficult but likely stage IV, given depth. Edge is pink but some necrotic- appearing tissue on the sites deeper in the wound and some very slight drainage noted. Some mild erythema of the surrounding area. NEUROLOGIC: Examination limited by patient's mental status but moves all extremities spontaneously, although non-purposefully. No obvious facial asymmetry. Pupils equal, round, reactive to light. PSYCHIATRIC: Patient is significantly encephalopathic. Awake and verbalizes spontaneously but does not follow any commands. Oriented x0 currently. SKIN: Ulcer as below. No other new rashes or lesions noted. ASSESSMENT AND PLAN: 1. Sepsis, likely left foot osteomyelitis. Patient with left 3rd and 4th toe amputation at another facility approximately a month ago. Recently discharged on Zosyn for suspected osteomyelitis. Should have finished her course of rehab just few days ago. Now with fever, leukocytosis, and mildly elevated lactate. Also with wound that appears somewhat infected. We will place her back on Zosyn and add vancomycin for now. We will get MRI and consult orthopedic surgery. Initial evaluation does not show any other source of infection but workup for a mildly elevated bilirubin as below. We will hydrate aggressively and monitor. The patient does have right upper chest Mclain but it looks good. No signs of site infection. We will monitor blood cultures and consider further evaluation of that if they become positive. 2. Elevated bilirubin. Patient with mildly elevated bilirubin at 1.88. AST and ALT within normal limits but alkaline phosphatase also mildly elevated. This is a new finding for the patient. We will obtain an ultrasound but patient does not appear to have any abdominal tenderness on exam so low suspicion for this to be a significant contributing factor. 3. Questionable facial droop. Patient reportedly had a facial droop at rehab but has had none here. The patient has baseline dementia and significant intermittent confusion. Suspect this was more related to her confusion and lack of cooperation rather than true facial droop but we will go ahead and place the patient on aspirin for now. Even if she has had a transient ischemic attack, really nothing else to do about that. 4. Diabetes. We will place on sliding scale insulin and monitor. Hold home metformin and sitagliptin. 5. Hypertension. Patient with pretty significantly elevated blood pressure in the emergency department but it may be related to anxiety, agitation, and/or pain. Giving a little Ativan did not seem to make much difference. We will give her some morphine and see if that improves things. If not, then we will place on as needed Ativan and additional medications as needed. 6. Metabolic encephalopathy, dementia. Patient with underlying dementia and worsened encephalopathy on admission, likely related to infection as above in the setting of dementia. Monitor. 7. Pubic ramus fracture. Weightbearing as tolerated as per last orthopedic recommendations. [facility]
[2019-01-01 15:31] LABS: AMYLASE 12 U/L (20-200); GGT 14 U/L (7-32); LIPASE 9 U/L (13-60)
[2019-01-01 15:55] LABS: ACETONE SERUM NEGATIVE (NEGATIVE)
--- NOTE | 2019-01-01 15:55 | Diag Imaging Result Doc PS360 ---
EXAM: CT C-SPINE/L-SPINE W/O CONTRAS INDICATION: Neck Pain TECHNIQUE: This exam was performed using automated exposure control, adjustment of mA or kV according to patient size, and/or use of iterative reconstruction technique. COMPARISON: CT C-spine dated 12/06/[address] of the pelvis dated 12/06/2018 FINDINGS: C-spine: There is multilevel extensive facet arthropathy and milder degenerative disc disease throughout the cervical spine that has not changed during the interval. There is pannus or pseudopannus formation associated with the atlantoaxial joint with erosive changes involving the dens however, it appears stable. No discrete fracture or intrinsic osseous lesion is identified, otherwise. There is no evidence of acute subluxation. There is minimal anterolisthesis of C5 on C6 and C6 on C7 that appears to be related to degenerative arthropathy. There is thickening of the prevertebral soft tissues at least from C1 through C3. This was not the case on the previous study. It is nonspecific. At least some of this could be due to positioning. However, it is suspicious for component of soft tissue edema. Because I can identify no discrete fracture, inflammatory or infectious etiologies should be considered. Please correlate clinically. L-spine: There is a known insufficiency fracture involving the left sacral ala that was also seen on the previous CT pelvis. There is multilevel facet arthropathy and degenerative disc disease throughout the lumbar spine. It is most significant at L3-4 and L4-5 where there is fairly severe central spinal stenosis. Facet arthropathy is causing mild anterolisthesis of L4 on L5. There are endplate degenerative Schmorl's nodes at the inferior endplate of L2 and the inferior and superior endplate of L3. No fracture, acute subluxation, or intrinsic osseous lesion is appreciated, otherwise. Surrounding soft tissues are essentially unremarkable. IMPRESSION: 1.Stable advanced degenerative changes involving the cervical spine. Although no discrete fracture is identified, there is prevertebral soft tissue thickening that was not present on the previous study suggesting possible edema. 2.Known left sacral alar insufficiency fracture that was also seen on the previous study. 3.Advanced multilevel degenerative arthropathy throughout the lumbar spine as described but no definite fracture or other definite acute L-spine injury. Electronically signed by Jose Smith 01/01/2019 3:53 PM
[2019-01-01] MEDS ORDERED: APRESOLINE IV PRN (16:10)
--- NOTE | 2019-01-01 16:21 | Diag Imaging Result Doc PS360 ---
EXAM: US ABDOMEN-COMPLETE HISTORY: abdominal pain TECHNIQUE: Abdominal ultrasound COMPARISON: None. FINDINGS: Normal pancreas. No abdominal aortic aneurysm. There is atherosclerosis. Normal inferior vena cava. No focal hepatic abnormality. Normal gallbladder. No stones. The common bile duct measures 10 mm. Normal right kidney. No hydronephrosis. There appears to be a small amount of fluid about the inferior right lobe of the liver and possible right kidney. Normal spleen. The left kidney is poorly seen. IMPRESSION: Difficult exam due to the patient's condition. Questionable minimal free fluid. Electronically signed by Kuldeep Barrientos 01/01/2019 4:18 PM
--- NOTE | 2019-01-01 16:39 | Diag Imaging Result Doc PS360 ---
EXAM: MRI LOW EXTREMITY W/O CON-LEFT INDICATION: likely L foot osteomyelitis TECHNIQUE: COMPARISON: None. FINDINGS: There is extensive motion artifact on several sequences, which may limit fine details. There has been prior amputation of the third and fourth toes at the MTP joints. At the head of the fourth metatarsal and, to a lesser degree, the head of the third metatarsal, there is increased T2 signal suggesting edema and is consistent with osteomyelitis. There is mild increased signal on T2 involving the tips of the remaining toes. However, this is probably due to artifactual for fat saturation. There is too much motion artifact on the STIR sequence to confirm it. There is soft tissue edema around the forefoot. There are degenerative changes at the first MTP joint. The tendinous structures of the foot appear to be intact given the limitations of motion artifact. IMPRESSION: 1.Somewhat limited study due to motion artifact. 2.Prior amputation of the second and third toes with increased signal associated with the fourth and, to a lesser degree, the third metatarsal head suggesting osteomyelitis. 3.Soft tissue edema around the forefoot suggesting cellulitis. Electronically signed by Jose Smith 01/01/2019 4:37 PM
[2019-01-01] MEDS ORDERED: VANCOMYCIN 1,250 MG in NS 250 ML IV ONE (17:00)
[2019-01-01] MEDS: NS 1,000 ML IV SCH ×2 (19:00→23:31)
[2019-01-01] MEDS: ZOSYN 4.5 GM in NS 100 ML IV SCH (20:42)
[2019-01-01] MEDS: LANTUS INSULIN SUBQ SCH (23:30)
[2019-01-02] MEDS: MORPHINE IV PRN (00:34)
[2019-01-02] MEDS: ZOSYN 4.5 GM in NS 100 ML IV SCH ×3 (05:51→13:47)
[2019-01-02 06:58] LABS: BASO# 0.01 X1000 (0.0-0.2); BASO% 0.1 % (0.0-0.8); EOS# 0.19 X1000 (0.0-0.7); EOS% 2.2 % (0.0-10.0); HEMATOCRIT 33.6 % (37.0-47.0); HEMOGLOBIN 10.6 g/dL (12.0-16.0); LYMPH% 15.3 % (20.5-51.1); MCH 27.7 PG (27-31); MCHC 31.5 g/dL (33-37); MONO# 1.07 X1000 (0.11-0.59); MONO% 12.6 % (1.7-9.3); NEUT# 5.95 X1000 (1.4-6.5); NEUT% 69.8 % (42.2-75.2); PLT 213 X1000 (130-400); RBC 3.82 XMIL (4.2-5.4); RDW 14.4 % (11.5-14.5); WBC 8.52 X1000 (4.8-10.8)
[2019-01-02 07:16] LABS: AGAP 11; ALB/GLOB RATIO 0.8; ALBUMIN 2.7 g/dL (3.5-5.0); ALKALINE PHOSPHATASE 175 U/L (32-104); BUN 12 mg/dL (8-22); CALCIUM 8.5 mg/dL (8.8-10.2); CHLORIDE 104 mmol/L (98-107); COSMO 286; CREATININE 0.7 mg/dL (0.5-0.9); ESTIMATED GFR > 60; GLUCOSE 160 mg/dL (70-104); GOT 12 U/L (10-30); GPT 8 U/L (10-36); POTASSIUM 3.3 mmol/L (3.5-5.1); SODIUM 142 mmol/L (136-145); TCO2 27 mmol/L (25-35); TOTAL BILIRUBIN 1.47 mg/dL (0.20-1.00); TOTAL PROTEIN 6.2 g/dL (6.3-8.3)
--- NOTE | 2019-01-02 10:13 | ORTHOPAEDICS CONSULTATION ---
DATE: 01/02/2019 CHIEF COMPLAINT: Left diabetic foot ulcer. HISTORY OF PRESENT ILLNESS: Ms. Nelson is an 83-year-old female with a history of recent falls and diabetic foot ulcer presented to the emergency department. She was found to be uncooperative and confused. She was admitted for sepsis. She had recently been in the hospital for pelvic fractures and also this diabetic foot ulcer and has recently been taken off of her antibiotics. She does not really answer my questions this morning. PAST MEDICAL HISTORY: Diabetes, hypertension, hyperlipidemia, dementia, left diabetic foot ulcer. PAST SURGICAL HISTORY: Bilateral knee surgeries. Left 3rd, 4th toe amputations. SOCIAL HISTORY: Unknown. I could not confirm with her this morning any of that. FAMILY HISTORY: I could not confirm either. MEDICATIONS: Per the medical record. ALLERGIES: Latex. REVIEW OF SYSTEMS: I did not get any review of systems out of her this morning. PHYSICAL EXAMINATION: General: She was resting in bed when I enter the room and she went back to sleep right after I finished my exam. Head and neck. Seems normocephalic, atraumatic. Respirations she has nonlabored breathing while sleeping in bed Abdomen is nondistended. Cardiovascular: She has weak pulses in her extremities. Left lower extremity exam, she does have what looks like a ulcer over her previous amputation site which was around the 3rd toe. She has some discoloration to the toes as well. A little bit of erythema but there is no swelling. I do not see any drainage. Things actually looked fairly dry. She has a faint DP and PT pulse. ASSESSMENT: Diabetic foot ulcer. PLAN: I looked at Ms. Nelson MRI. Unfortunately she had a lot of motion artifact in it which was really difficult to really ascertain whether she has any signal change in the bone or not. It looks like she may have had a little bit of signal change in that third or 4th metatarsal right at the head area. I did not see any areas of abscess. At this point, I would continue her on IV antibiotics. I think getting vascular studies is going to be beneficial to see if she can heal if there was another surgery done on this foot, so will order vascular studies today at all. I will put in a wound care consult as well. I am not convinced amputating further at this point, would we will continue to monitor this left lower extremity. I also with vascular studies come back today. We will continue to follow. cc: Semaj Prasad MD
[2019-01-02] MEDS: NS 1,000 ML IV SCH ×3 (12:43→19:08)
[2019-01-02] MEDS: ASPIRIN PO SCH (13:01)
[2019-01-02] MEDS: HUMALOG SUBQ SCH ×3 (13:01→21:57)
[2019-01-02] MEDS: ARICEPT PO SCH (13:02)
--- NOTE | 2019-01-02 14:27 | PROGRESS NOTE ---
DATE: 01/02/2019 INTERVAL HISTORY: The patient remains quite confused, although a little less encephalopathic than yesterday. Was almost entirely unresponsive yesterday. Today is speaking a few words. Goes back and forth between Greenlandic and Italian. Does not really seem to comprehend well, but does follow most commands. Oriented to person at best. Afebrile overnight. No other acute events. Not really answering questions still. REVIEW OF SYSTEMS: Unable to obtain secondary to patient's mental status. LABS: WBC 8.5, hemoglobin 10.6, hematocrit 33.6, platelets 213,000. Sodium 142, potassium 3.3, BUN 12, creatinine 0.7, glucose 153 to 160. Bilirubin 1.47, AST 12, ALT 8, alkaline phosphatase 175. Repeat lactate undetectable. IMAGING: Left foot MRI with significant motion artifact but does have increased signal in the 4th and to a lesser extent 3rd metatarsal suggesting osteomyelitis, as well as surrounding soft tissue edema consistent with cellulitis. Abdominal ultrasound with no clear gallbladder, liver, or pancreatic abnormality. VITAL SIGNS: T-max 100.6 degrees just after admission. No fevers overnight or this morning. Pulse 66, respirations 14, blood pressure 134/48, O2 saturation 99% on room air. PHYSICAL EXAMINATION: General: No acute distress. Vital signs: As above. HEENT: Normocephalic, atraumatic. Moist mucous membranes. No cervical adenopathy. Cardiovascular: Regular rate and rhythm. No murmurs noted. Pulmonary: Clear to auscultation bilaterally. No wheezing, rales, or rhonchi. Abdomen: Soft, nontender, nondistended. Bowel sounds positive. Extremities: Peripheral pulses significantly decreased but present. Left lower extremity with 2 toes previously amputated. 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 A little less erythema of the surrounding skin. No drainage today. Neurologic: Somewhat limited by patient's mental status, but the patient moves all extremities and squeeze hands to command on both sides. Pupils equal, round, reactive to light. No clear focal deficits. Psychiatric: Awake and somewhat alert but oriented to person at best. Requires repeating commands but does follow commands eventually. Does not really answer questions appropriately and sometimes not at all for the most part. Still appears quite confused and goes back and forth between Greenlandic and Italian. Somewhat improved from yesterday. ASSESSMENT AND PLAN: 1. Left foot osteomyelitis. Patient previously treated for osteomyelitis of the left foot and finished antibiotics approximately a week ago. Now back with signs of sepsis and left foot infection. Placed on Zosyn and vancomycin and patient does appear to be improving on that, but less erythema and drainage appears to have dried up. Surgery on board and getting vascular studies to assess whether patient is likely to heal from surgery if that becomes needed. Tentatively planning on conservative therapy for now. Continue antibiotics. We will get ID back on board and monitor closely. 2. Metabolic encephalopathy. Likely related to underlying dementia in the setting of left foot infection. Improving slowly with treatment as above. Continue to monitor and reorient as possible. 3. Hypertension. Occasional moderate elevations but acceptable control off of medication currently. If it becomes consistently elevated, we will consider adding antihypertensive agents. 4. Diabetes mellitus. Overall reasonable control on current regimen with Lantus and sliding scale insulin. We will monitor and adjust as needed. 5. Hyperlipidemia. Will restart patient's home Lipitor. 6. Pubic rami fracture. Identified on previous admission. Weightbearing as tolerated. We will get physical therapy to see her.
[2019-01-02] MEDS: CUBICIN 300 MG in NS 100 ML IV SCH (16:00)
--- NOTE | 2019-01-02 17:12 | INFECTIOUS DISEASE CONSULT REP ---
DATE: 01/02/2019 CONCLUSION: Ms. Nelson was recently admitted to the hospital after a fall and at some point was put on Zosyn for a probable left foot osteomyelitis. As far as we can tell, she was not kept on the minimum requirement of 6 weeks for osteomyelitis. The left foot has grown a Pseudomonas. This admission she has also been found to have a bacteremia with gram-positive cocci growing in both cultures. Since there is a right subclavian central line, we suspect that this is the origin of the bacteremia. RECOMMENDATIONS: We have discontinued vancomycin due to patient being elderly and hard of hearing we will start her on daptomycin 300 mg IV daily, for the gram-positive cocci in both Gram stains of her blood cultures. Most likely, if these do not grow out to be contaminants, we will have to discontinue the central line tomorrow. We will discontinue Zosyn, and start her on cefepime 2 g IV every 8 hours for the Pseudomonas in her right foot. After speaking with [facility], it appears that she only received 2 or maybe 3 weeks of Zosyn for the osteomyelitis, which was stopped on December 24. We will ask the wound care nurse to provide recommendations for the left foot care. Dr. Prasad is seeing the patient and he has mentioned in his note the possibility of getting vascular studies, which we also think is appropriate. Pedal pulses are difficult to palpate. These plans have been discussed with and recommended by Dr. Johnson. DISCUSSION: Ms. Nelson appears to have been diagnosed at some point with osteomyelitis status post amputation of her 2nd and 3rd toes. I am unsure in which facility she had that done and how the diagnosis of osteomyelitis was obtained, however she was given Zosyn for 2 or possibly 3 weeks as far as we can tell. The patient has had language and cognitive limitations, so information has been obtained from the chart. There was a leukocytosis on admission, however, today her white count is back to normal. PAST MEDICAL HISTORY: Includes a recent fall with left pubic ramus fracture, diabetes mellitus, dementia, hypertension, hyperlipidemia, and left foot diabetic ulcers. PAST SURGICAL HISTORY: Includes bilateral knee surgeries and amputations to left 2nd and 3rd toes. LABORATORY AND X-RAY: Today her white count is 8.52, hemoglobin 10.6, platelet count 213,000. On room air, her arterial blood gases show a pH of 7.44, pCO2 of 41, PO2 62, HCO3 27.48. Creatinine is 0.7, estimated GFR is greater than 60. Total bilirubin is 1.47, AST 12, ALT 8, alkaline phosphatase 175. Creatine kinase done yesterday was 50 and amylase 12, lipase 9. A urinalysis done yesterday is negative for bacteria and less than 10 urine WBC. Previous left foot culture grew Pseudomonas aeruginosa. Blood cultures on this admission are both positive for gram positive cocci in the Gram stains. EKG done on admission shows sinus rhythm with PVCs on unconfirmed report. Chest x-ray showed no acute disease. Left lower extremity MRI showed prior amputation of the 2nd and 3rd toes with increased signal to the 4th and 3rd metatarsal heads suggesting osteomyelitis. There is also soft tissue edema to the forefoot suggesting cellulitis. SOCIAL HISTORY: Patient has been at [facility] since her last hospitalization. Before that she was living at home with her daughter. No tobacco, alcohol or illicit drugs. FAMILY HISTORY: Unable to obtain. ALLERGIES: Latex. HOME MEDICATIONS: Include ProAir inhaler, Rafael, Lipitor, Aricept, Lantus insulin, Culturelle, multivitamin, Zofran, oxycodone, Zoloft, and Janumet. PHYSICAL EXAMINATION: Vital Signs: Temperature is 98 degrees, pulse rate 66, respiratory rate 14, blood pressure 171/49, O2 saturation is 97% on room air. Weight is 48 kg. General: This is a chronically ill-appearing, elderly female. She is lying on her left lateral side, currently in no distress unless she is touched. HEENT: Atraumatic, normocephalic. Oral mucous membranes are pink and moist. Conjunctivae are pale. Neck: Appears to have a decrease in suppleness. Trachea is midline. Cardiovascular: Heart rate is irregular and sounds to have normal underlying rhythm with ectopy. There is a systolic murmur. Respiratory: Lung sounds have some mild, scattered wheezing and rales bilaterally; diminished in the bases. Respiratory excursion is diminished. Abdomen: Soft, flat, and nontender to palpation. Bowel sounds are active. Integumentary: Skin is warm and dry. Her left foot has amputations to the 2nd and 3rd toes with some dark, dry drainage to the area. There are also some areas of skin to the foot that are dry abrasions. There is a right subclavian central line, with the site free of edema, erythema or drainage. Neurologic: She is awake, alert and hard of hearing. She will verbalize some, but speaking mainly in Guinean. The patient has been apparently confused. She is able to move her extremities, but she does withdraw from touch to the lower extremities and movement of the upper extremities. Does not follow commands. Thank you for allowing us to see Ms. Nelson. Dictated by NABIL Townsend for Bar Johnson MD cc: Bar Johnson MD MTDD
[2019-01-02] MEDS: MAXIPIME 2 GM in NS 100 ML IV SCH (19:01)
--- NOTE | 2019-01-02 19:17 | VASCULAR LAB ---
DATE: 01/02/2019 WASTEWATER DESIGN ENGINEER: Jona. INDICATION: Left foot ulcers. FINDINGS: Brachial on the right is 184. The high thighs were not obtained secondary to patient compliance. Low thigh on the right is 250, on the left 250. Calf on the right is 250, on the left 250. DP on the right is 250, on the left 250. PT on the right is 250, on the left 250. Toe pressure on the right is 86, on the left 80. AMRIK on the right is 1.36, on the left 1.36. Toe brachial indices of 0.47 on the right, 0.43 on the left. SUMMARY: There is some blunting of the waveforms throughout. There is evidence of incomplete compressibility noted at each location which would suggest some degree of calcific disease. Although there is pulsatile flow noted to the level of the ankle and the toes, there are likely calcific atherosclerotic changes noted. Would recommend correlation with angiography as indicated. cc: MD Madhuri Sanches CRNP
[2019-01-02] MEDS: LANTUS INSULIN SUBQ SCH (21:58)
[2019-01-03] MEDS: MAXIPIME 2 GM in NS 100 ML IV SCH ×3 (00:35→17:35)
[2019-01-03] MEDS: MORPHINE IV PRN (00:36)
[2019-01-03] MEDS: NS 1,000 ML IV SCH (06:57)
[2019-01-03] MEDS: HUMALOG SUBQ SCH ×4 (08:00→21:00)
[2019-01-03 09:17] LABS: HEMATOCRIT 34.3 % (37.0-47.0); HEMOGLOBIN 10.6 g/dL (12.0-16.0); MCH 27.6 PG (27-31); MCHC 30.9 g/dL (33-37); MCV 89.3 FL (81-99); MPV 10.3 FL (7.4-10.4); RBC 3.84 XMIL (4.2-5.4); RDW 14.3 % (11.5-14.5); WBC 8.6 X1000 (4.8-10.8)
[2019-01-03] MEDS: ARICEPT PO SCH (09:19)
[2019-01-03] MEDS: ASPIRIN PO SCH (09:19)
[2019-01-03 10:12] LABS: AGAP 13; BUN 14 mg/dL (8-22); CHLORIDE 103 mmol/L (98-107); COSMO 278; CREATININE 0.8 mg/dL (0.5-0.9); ESTIMATED GFR > 60; GLUCOSE 107 mg/dL (70-104); POTASSIUM 3.4 mmol/L (3.5-5.1); SODIUM 139 mmol/L (136-145); TCO2 23 mmol/L (25-35)
[2019-01-03] MEDS: CUBICIN 300 MG in NS 100 ML IV SCH (15:07)
[2019-01-03] MEDS ORDERED: VANCOMYCIN 1 GM/NS 1 GM/250 ML IVPB IV SCH (17:00)
--- NOTE | 2019-01-03 18:24 | PROGRESS NOTE ---
DATE: 01/03/2019 INTERVAL HISTORY: The patient is more awake than yesterday but still quite confused. He occasionally speaks in Czech but largely speaks in Palauan. Intermittently following commands. Initial blood culture is positive for gram-positive cocci. REVIEW OF SYSTEMS: Unable to obtain secondary to patient's mental status. LABORATORY DATA: WBC 8.6, hemoglobin 10.6, hematocrit 34.3, platelets 217. Sodium 139, potassium 3.4, bicarbonate 23, BUN 14, creatinine 0.7, glucose 107 to 112. VITALS: T-max 98.3 degrees, pulse 88, respirations 16, blood pressure 138/62, oxygen saturation 97% on room air. PHYSICAL EXAMINATION: General: In no acute distress. Vitals as above. HEENT: Normocephalic, atraumatic. Moist mucous membranes. No cervical adenopathy. Cardiovascular: Regular rate and rhythm. No murmurs noted. Pulmonary: Clear to auscultation bilaterally. No wheezes, rales or rhonchi. Abdomen: Soft, nontender, nondistended. Bowel sounds positive. Extremities: Peripheral pulses remain decreased but present. Left lower extremity with two toes previously amputated. The ulcer between 2 of the remaining toes is pretty much entirely dry at this point. No drainage. Surrounding erythema also appears quite a bit improved. Still some necrotic-looking areas. Neurologic: Patient moving all extremities. Speaking but goes back and forth between Czech and Palauan and does not make a whole lot of sense. No clear focal deficits. Psychiatric: Awake, quite alert, but still appears to be quite confused. ASSESSMENT AND PLAN: 1. Left foot osteomyelitis. The patient previously was treated for osteomyelitis of the left foot for uncertain length of time, but finished antibiotics approximately a little over a week ago. Admitted with signs of sepsis and left foot infection with MRI suggesting osteomyelitis. Placed on Zosyn and vancomycin initially. Infectious Disease on board and has changed the patient to daptomycin and cefepime. Discussed with Orthopedic Surgery and they obtained vascular studies and after reviewing the patient's wound and her arterial studies have recommended that we get Vascular Surgery to look at the patient. It is likely that the patient will eventually need [id number] amputation but not sure if it will be on this admission or not. Continue conservative therapy for now. 2. Bacteremia, gram-positive cocci in blood cultures. Speciation not yet available but concern for methicillin-resistant Staphylococcus aureus. If this is MRSA, then we may have to consider removing her port. If it comes back as contaminant, then we will continue with current therapy. We will go ahead and repeat blood cultures today. 3. Metabolic encephalopathy, likely related to underlying dementia in the setting of her left foot infection. Continues to improve slowly but still quite confused. The patient reportedly speaks good Czech at baseline. Was speaking a little Czech to me yesterday but not today. Continue to monitor and reorient as possible. 4. Hypertension. Occasional significant elevations but also some low blood pressures down to 109/86, so we will hold off on starting any antihypertensives at this time. If she gets to a point where she is regularly elevated with no lows, then we will begin antihypertensive medications. 5. Diabetes mellitus. Overall acceptable control with Lantus and sliding-scale insulin. Continue to monitor. 6. Hyperlipidemia. Continue Lipitor. 7. Pubic rami fractures identified on previous admission. Weight-bearing as tolerated. Physical Therapy is following. Monitor.
--- NOTE | 2019-01-03 19:49 | GENERAL SURGERY CONSULTATION ---
DATE: 01/03/2019 REASON FOR CONSULTATION: Peripheral vascular disease and nonhealing foot ulcer. HISTORY OF PRESENT ILLNESS: This is an 83-year-old female who has had prior left 2nd and 3rd toe amputations, although I am not exactly sure when or at what facility. She has had a nonhealing wound on that foot. She has been followed by Dr. Prasad, and I believe she has been diagnosed with osteomyelitis of the left foot metatarsals. She previously had Pseudomonas growing in that wound and apparently underwent a few weeks of Zosyn, but that was not completed for a full six weeks. She was admitted and also found to be bacteremic with gram-positive cocci growing in her blood, which may be from a central line. I have been consulted because she has this nonhealing ulcer and a lower extremity arterial study suggested stenotic disease of the left leg. The patient is not able to communicate with me very well. I got most of my history from the chart. PAST MEDICAL HISTORY: Left pubic rami fracture, diabetes, dementia, hypertension, hyperlipidemia, left nonhealing foot ulcer, and osteomyelitis of the left foot. PAST SURGICAL HISTORY: Bilateral knee surgery, amputations of the left 2nd 3rd toes. FAMILY HISTORY: Unable to obtain. ALLERGIES: Latex. SOCIAL HISTORY: She was recently at [facility]. She apparently lives at home with her daughter. No tobacco, alcohol, or illicit drug use. CURRENT MEDICATIONS: Aspirin, cefepime, daptomycin, Aricept, Apresoline, Lantus, Humalog, morphine, Zofran, OxyIR. REVIEW OF SYSTEMS: Unable to obtain. PHYSICAL EXAMINATION: Temperature 97.5 degrees.General: She is elderly, appears frail and chronically ill, but in no acute distress. HEENT: Normocephalic, atraumatic. Extraocular muscles intact. Pupils equal, round, reactive to light. Sclerae anicteric. Neck: Supple. No thyromegaly. Cardiovascular: Regular rate and rhythm. Respiratory: Bilateral breath sounds. No work of breathing. Gastrointestinal: Soft, nontender. No organomegaly or mass. Musculoskeletal: Moves all extremities. Extremities: No clubbing, edema, or cyanosis. I believe I can palpate a faint pulse dorsalis pedis pulse in the left foot. Skin: The left foot was examined for a few patchy areas of dry gangrene medially on the distal foot. Her ulcer at the site of the toe amputations appears to have some slight serous drainage. The wound bed is mostly dry. There is no gross pus or necrotic tissue. LABORATORY: White blood cell count 8, hemoglobin 10, hematocrit 34. Electrolytes reviewed and unremarkable. BUN and creatinine are normal. ASSESSMENT/PLAN: An 83-year-old female with nonhealing left foot ulcer and possible peripheral vascular disease. We will go ahead and get a CT angiogram of the aorta with runoff of the extremities to evaluate for any significant stenosis that may be limiting her wound healing. Otherwise, I will order some Santyl for the wound. cc: Miguel Crabtree MD
[2019-01-03] MEDS: LANTUS INSULIN SUBQ SCH (20:34)
[2019-01-04] MEDS: MAXIPIME 2 GM in NS 100 ML IV SCH ×3 (01:45→16:50)
[2019-01-04] MEDS: HUMALOG SUBQ SCH ×4 (06:39→21:49)
[2019-01-04 07:11] LABS: BASO# 0.02 X1000 (0.0-0.2); BASO% 0.3 % (0.0-0.8); EOS# 0.47 X1000 (0.0-0.7); EOS% 6.3 % (0.0-10.0); HEMOGLOBIN 11.1 g/dL (12.0-16.0); LYMPH# 1.31 X1000 (1.2-3.4); LYMPH% 17.5 % (20.5-51.1); MCH 27.3 PG (27-31); MCHC 30.8 g/dL (33-37); MCV 88.5 FL (81-99); MPV 10.1 FL (7.4-10.4); NEUT# 5.09 X1000 (1.4-6.5); NEUT% 67.9 % (42.2-75.2); PLT 258 X1000 (130-400); RBC 4.07 XMIL (4.2-5.4); RDW 14.2 % (11.5-14.5); WBC 7.49 X1000 (4.8-10.8)
[2019-01-04 07:23] LABS: AGAP 16; BUN 13 mg/dL (8-22); CALCIUM 8.8 mg/dL (8.8-10.2); CHLORIDE 106 mmol/L (98-107); COSMO 286; CREATININE 0.6 mg/dL (0.5-0.9); ESTIMATED GFR > 60; GLUCOSE 82 mg/dL (70-104); POTASSIUM 3.1 mmol/L (3.5-5.1); SODIUM 144 mmol/L (136-145); TCO2 22 mmol/L (25-35)
[2019-01-04] MEDS ORDERED: POTASSIUM CHLORIDE 60 MEQ in NS 500 ML IV ONE (08:34)
[2019-01-04] MEDS: ASPIRIN PO SCH (08:43)
[2019-01-04] MEDS: ARICEPT PO SCH (08:43)
[2019-01-04] MEDS: SANTYL OINT TOP SCH (08:43)
[2019-01-04] MEDS: OXY IR PO PRN (09:14)
[2019-01-04] MEDS: NORVASC PO SCH (13:22)
--- NOTE | 2019-01-04 13:31 | Diag Imaging Result Doc PS360 ---
CT ANGIOGRAM AORTA W/RUNOFF - 01/04/2019 INDICATION: non healing Left foot ulcer, PVD TECHNIQUE: Axial CT images were obtained after administering intravenous contrast. Three-dimensional angiographic images were generated. COMPARISON: None FINDINGS: The lung bases are clear and the heart size is grossly normal. There is advanced triple-vessel calcified coronary artery disease diffusely. There is heavy calcified vascular disease of the abdominal aorta. No aneurysm. The major branches are patent. There is mild distention of the gallbladder which measures 9.5 x 4 cm. There is a Booker catheter in the urinary bladder. There is mild constipation. There is a left femoral neck stabilization rdaha. There are displaced old fractures of the pubic rami on the left as well as the pubic symphysis. There is moderate surrounding new bone formation but not complete healing. There is also an old fracture through the left sacral wing, again with some sclerosis and new bone formation. Prior amputations of apparently the third and fourth toes on the left side. There is some indeterminate bony erosion at the distal third and fourth metatarsal heads. On the right side, there is vascular disease of the iliac artery systems but no significant stenosis. There is severe stenosis of the origin of the superficial femoral artery with about 70% narrowing. The deep femoral artery is diseased but patent. Remainder of the superficial femoral artery is somewhat diseased without severe stenosis. There is critical stenosis of the distal popliteal artery with 90% narrowing. There is complete occlusion of the trifurcation vessel origins. These are reconstituted in the calf by small collaterals from the popliteal artery. No contrast runoff to the foot. On the left side, the iliac artery systems are patent. Moderate but nonocclusive plaque of the common femoral artery. Once again, there is severe stenosis at the origin of the superficial femoral artery with circumferential narrowing, narrowed by about 75%. The deep femoral artery is grossly patent. In general the superficial femoral artery is diseased but more patent distally. The popliteal artery demonstrates critical stenosis of about 90% narrowing right at the knee joint. The anterior tibial artery is patent. The posterior tibial artery and peroneal artery appears runoff to the foot. IMPRESSION: 1. Severe peripheral vascular disease. 2. Other nonspecific findings. This exam was performed using automated exposure control, adjustment of mA or kV according to patient size, and/or use of iterative reconstruction technique Electronically signed by Jorge Gautam 01/04/2019 1:29 PM
[2019-01-04] MEDS: ZOFRAN IV PRN (13:32)
--- NOTE | 2019-01-04 14:13 | PROGRESS NOTE ---
DATE: 01/04/2019 SUBJECTIVE: The patient's mental status is similar to yesterday. Arousing, interactive, and alert, but quite confused. Still only following commands intermittently for me. Blood cultures positive for Staph epidermidis. REVIEW OF SYSTEMS: Unable to obtain secondary to patient's mental status. LABORATORY: WBC 10.49, hemoglobin 11.1, hematocrit 36.0, and platelets 258,000. Sodium 141, potassium 3.1, bicarb 22, BUN 13, creatinine, 0.6 and glucose 82. VITALS: T-max 98.3 degrees, pulse 67, respirations 16 and blood pressure 170/40. O2 saturation is 100% on room air. OBJECTIVE: General: No acute distress. Vitals: As above. HEENT: Normocephalic, atraumatic. Moist mucous membranes. No cervical adenopathy. Cardiovascular: Regular rate and rhythm. No murmur. Lungs: Clear to auscultation bilaterally. No wheezing, rales or rhonchi. Abdomen: Soft. Nontender. Bowel sounds positive. Extremities: Peripheral pulses remain barely palpable, but present. 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 Ulcer at the site of the previous amputation without any further drainage. Surrounding erythema resolved. Still some areas of necrotic appearing tissue, but these are quite small. Neurologic: Patient moving all extremities. No clear focal deficits. Psychiatric: Awake, alert, and intermittently cooperative. Appears to largely understand commands in Jamaican but speaking only Frisian today. Has spoken Jamaican with me previously. Family reports that she is pretty fluent usually so current situation is likely due to confusion. ASSESSMENT AND PLAN: 1. Left foot osteomyelitis. The patient previously treated for osteomyelitis left foot for uncertain length of time. Had approximately 3 weeks of Zosyn documented, but unclear if she was on antibiotics from outside hospital prior to that. Admitted here with signs and symptoms of left foot infection with MRI suggesting osteomyelitis. Placed on Zosyn and vancomycin initially, but later changed to daptomycin and cefepime by ID. Blood cultures growing out staphylococci epidermidis. There is the possibility this was a contaminant, but on discussion with infectious disease, they favor this as a real infection as it was in all the bottles. Patient does have a central line which is likely the source of this infection. Discussed the patient's foot with Orthopedic Surgery. They obtained vascular studies that were somewhat worrisome for a vascular issue. They recommend we have the surgeons to who do more vascular procedures take a look at it. They are planning for angiography with runoff to better clarify exactly what her circulation is. Depending on the results of that and how she does with antibiotics, it is certainly possible the patient may need a [id number] amputation at some point. Seems to be doing reasonably well so far, the drainage has stopped and the edges of the wound have improved. 2. Bacteremia. The patient with all bottles with Staphylococcus epidermidis. Infectious Disease favors true infection related to her osteomyelitis above. Attempting to salvage the line with antibiotic therapy. We will follow blood cultures pending. We will monitor closely. Hopefully, we can avoid removing the port, but if blood cultures remain positive, that may be unavoidable. 3. Metabolic encephalopathy. The patient with known underlying dementia, likely acute confusion related to infection and from the environment. She is waking up quite well compared to what she was when she came in, but still remains quite confused. 4. Hypertension. Blood pressure initially labile with both highs and lows. Still jumping around quite a bit so reluctant to give significant antihypertensives. The patient varying from 112/55 to 188/49. We will give a very low dose Norvasc and monitor closely. 5. Diabetes mellitus good control on current Lantus and sliding scale. Monitor 6. Hyperlipidemia. Continue Lipitor. 7. Pubic rami fracture as seen on previous admission. The patient appears to be doing okay. Weightbearing as tolerated. PT following.
--- NOTE | 2019-01-04 15:29 | INFECTIOUS DISEASE PROGRESS NO ---
DATE: 01/04/2019 PRESENT ILLNESS: The patient has a Staph epidermidis bacteremia which originated from her right subclavian vein catheter. The patient also has a Pseudomonas left foot osteomyelitis. MEDICATIONS: The patient is receiving a combination of daptomycin and cefepime. PHYSICAL EXAMINATION: Vital Signs: Temperature is 97.7 degrees, pulse 67, respiration 16, blood pressure 189/70. General: This is a chronically ill-appearing elderly female. She is in no acute distress. Head, eyes, ears, nose, and throat: No drainage noted from the nose or the ears. Neck: No pain with movement of her neck. Lungs: Clear to auscultation. Cardiovascular: Heart rate is irregular with a systolic murmur. Abdomen: Soft, not tender. Thorax: Patient has a right-sided subclavian catheter in place. The site is not draining or erythematous. Extremities: The patient has no erythema or drainage coming from her left foot today. Neurologic: The patient is awake. She can move her extremities. There is no tremor. LAB AND X-RAY: There is no new radiographic study. The CBC for today shows a white count 7490, hemoglobin is 11.1, platelet count is 258,000, creatinine is 0.6, GFR is greater than 60. Repeat blood cultures are pending. ASSESSMENT AND PLAN: The patient has a Staph bacteremia originating from her right subclavian catheter. She also has left foot osteomyelitis due to Pseudomonas. The plan is to continue with daptomycin and cefepime. COMORBIDITIES: The patient is elderly.. She has diabetes mellitus and most likely has peripheral vascular disease as well. cc: Bar Johnson MD
[2019-01-04] MEDS ORDERED: ATIVAN IV PRN (15:45)
[2019-01-04] MEDS: CUBICIN 300 MG in NS 100 ML IV SCH (16:24)
[2019-01-04] MEDS: NS 1,000 ML IV SCH (21:51)
[2019-01-04] MEDS: LANTUS INSULIN SUBQ SCH (21:51)
[2019-01-05] MEDS: NS 1,000 ML IV SCH ×2 (00:29→11:02)
[2019-01-05] MEDS: MAXIPIME 2 GM in NS 100 ML IV SCH ×3 (00:31→17:51)
[2019-01-05 06:00] LABS: BASO# 0.01 X1000 (0.0-0.2); BASO% 0.2 % (0.0-0.8); EOS# 0.44 X1000 (0.0-0.7); EOS% 8.1 % (0.0-10.0); HEMATOCRIT 32.4 % (37.0-47.0); HEMOGLOBIN 9.8 g/dL (12.0-16.0); LYMPH# 0.97 X1000 (1.2-3.4); LYMPH% 17.8 % (20.5-51.1); MCH 27.2 PG (27-31); MCHC 30.2 g/dL (33-37); MONO# 0.56 X1000 (0.11-0.59); MONO% 10.3 % (1.7-9.3); NEUT# 3.46 X1000 (1.4-6.5); NEUT% 63.6 % (42.2-75.2); PLT 254 X1000 (130-400); RDW 14.4 % (11.5-14.5); WBC 5.44 X1000 (4.8-10.8)
[2019-01-05 06:11] LABS: AGAP 14; BUN 11 mg/dL (8-22); CALCIUM 8.6 mg/dL (8.8-10.2); CHLORIDE 112 mmol/L (98-107); COSMO 292; CREATININE 0.7 mg/dL (0.5-0.9); ESTIMATED GFR > 60; GLUCOSE 100 mg/dL (70-104); POTASSIUM 3.3 mmol/L (3.5-5.1); SODIUM 147 mmol/L (136-145); TCO2 21 mmol/L (25-35)
[2019-01-05] MEDS: HUMALOG SUBQ SCH ×4 (06:32→21:40)
[2019-01-05] MEDS: APRESOLINE IV SCH ×3 (09:03→21:36)
[2019-01-05] MEDS: ASPIRIN PO SCH (10:06)
[2019-01-05] MEDS: SANTYL OINT TOP SCH (10:06)
[2019-01-05] MEDS: NORVASC PO SCH (10:06)
[2019-01-05] MEDS: POTASSIUM CHLORIDE 20 MEQ/SWI 20 MEQ/100 ML IVPB IV SCH ×2 (10:59→15:39)
--- NOTE | 2019-01-05 13:42 | PROGRESS NOTE ---
DATE: 01/05/2019 INTERVAL HISTORY: The patient with significant agitation yesterday, pulling at lines, attempting to hit staff. Family said that Ativan had worked well in the past so that was tried. That did calm her down, but she is pretty somnolent this morning. Still refusing most p.o. medications. Remains afebrile. No other acute events overnight. REVIEW OF SYSTEMS: Unable to obtain secondary to patient mental status. LABS: WBC 5.4, hemoglobin 9.8, hematocrit 32.4, platelets 254,000. Sodium 147, potassium 3.3, bicarb 21, BUN 11, creatinine 0.7, glucose 99. IMAGING: Angiography with runoff showing severe peripheral vascular disease including severe stenosis of the origin of the superficial femoral, critical stenosis of distal popliteal with 90% narrowing, complete occlusion of the trifurcation vessel origins on the right. On the left again, severe stenosis of the origin of the superficial femoral, popliteal, critical stenosis 90% at approximately the knee joint. VITALS: T-max 98.2 degrees, pulse 74, respirations 18, blood pressure 177/52, O2 saturation 100% on room air. PHYSICAL EXAMINATION: General: No acute distress. Vitals: As above. HEENT: Normocephalic, atraumatic. Moist mucous membranes. No cervical adenopathy. Cardiovascular: Regular rate and rhythm. No murmurs noted. Pulmonary: Clear to auscultation bilaterally. No wheezing, rales, or rhonchi. Abdomen: Soft, nontender, nondistended. Bowel sounds positive. Extremities: Peripheral pulses significantly decreased but palpable. Left extremity proximally stable ulcer still with no drainage, dry. Surrounding erythema is essentially resolved at this point. Neurologic: Limited by patient mental status. Occasional nonpurposeful movement of all extremities. Not as conversive today. Still no clear focal deficits. Psychiatric: Asleep but arouses briefly, not as conversive. Not following commands. ASSESSMENT AND PLAN: 1. Left foot osteomyelitis. Previous treatment for osteomyelitis with Zosyn for uncertain length of time. Admitted here with signs of sepsis and left foot infection with imaging suggesting osteomyelitis. Was placed on vancomycin and Zosyn initially, has been on cefepime and daptomycin for the last few days as per ID. Surgery has been evaluating her vasculature. Imaging suggesting fairly significant peripheral vascular disease. Continue antibiotics for now and await further surgical recommendations. 2. Bacteremia, staph epidermidis growing from her initial blood cultures. Repeat blood cultures remain no growth so far. Discussed with Infectious Disease. They believe the port may be able to be salvaged. Continue antibiotics and monitor. If repeat blood cultures become positive, then port will likely have to be removed. 3. Metabolic encephalopathy, likely related to underlying dementia in the setting of acute illness. Had been improving until yesterday when she became significantly agitated, had to begin sedation with Ativan. Pretty somnolent and markedly confused this morning. We will try easing off that Ativan and if possible, we will try to get her to take a small dose of Seroquel tonight. 4. Hypertension, was doing reasonably well on her home oral medications, but patient now refusing to take oral medications. We will go ahead and put her on some low-dose IV hydralazine to try to get better control. 5. Diabetes mellitus. Good control with current regimen. Monitor. 6. Hyperlipidemia. Continue Lipitor. 7. Pubic rami fractures first identified on previous admission. Still present but appears to be some healing on most recent image. Physical therapy following as mental status allows. Monitor. 8. Hypokalemia. Will replete and monitor.
[2019-01-05] MEDS ORDERED: BLISTEX MEDICATED BERRY LIP BALM TOP PRN (15:20)
[2019-01-05] MEDS: ATIVAN IV PRN (16:14)
[2019-01-05] MEDS: CUBICIN 300 MG in NS 100 ML IV SCH (16:36)
[2019-01-05] MEDS: CALMOSEPTINE OINTMENT TOP PRN (18:04)
[2019-01-05] MEDS: SEROQUEL PO SCH (20:20)
[2019-01-05] MEDS: LANTUS INSULIN SUBQ SCH (21:35)
[2019-01-06] MEDS: ATIVAN IV PRN (00:48)
[2019-01-06] MEDS: MAXIPIME 2 GM in NS 100 ML IV SCH ×3 (03:11→18:16)
[2019-01-06] MEDS: APRESOLINE IV SCH ×4 (03:11→22:18)
[2019-01-06] MEDS: NS 1,000 ML IV SCH (03:54)
[2019-01-06 06:00] LABS: BASO# 0.02 X1000 (0.0-0.2); BASO% 0.2 % (0.0-0.8); EOS# 0.39 X1000 (0.0-0.7); EOS% 4.8 % (0.0-10.0); HEMOGLOBIN 11.5 g/dL (12.0-16.0); IMM GRAN# 0.02 X1000 (0.0-0.04); IMM GRAN% 0.2 % (0.0-0.5); LYMPH# 1.03 X1000 (1.2-3.4); LYMPH% 12.7 % (20.5-51.1); MCH 27.9 PG (27-31); MCHC 31.9 g/dL (33-37); MCV 87.4 FL (81-99); MONO# 0.69 X1000 (0.11-0.59); MONO% 8.5 % (1.7-9.3); MPV 9.8 FL (7.4-10.4); NEUT# 5.93 X1000 (1.4-6.5); NEUT% 73.6 % (42.2-75.2); PLT 322 X1000 (130-400); RBC 4.12 XMIL (4.2-5.4); RDW 14.3 % (11.5-14.5); WBC 8.08 X1000 (4.8-10.8)
[2019-01-06 06:37] LABS: AGAP 19; BUN 8 mg/dL (8-22); CHLORIDE 106 mmol/L (98-107); COSMO 290; CREATININE 0.6 mg/dL (0.5-0.9); ESTIMATED GFR > 60; GLUCOSE 114 mg/dL (70-104); POTASSIUM 3.3 mmol/L (3.5-5.1); SODIUM 146 mmol/L (136-145); TCO2 21 mmol/L (25-35)
[2019-01-06] MEDS: HUMALOG SUBQ SCH ×4 (06:39→22:17)
[2019-01-06] MEDS: 1/2 NS 1,000 ML IV SCH (10:05)
[2019-01-06] MEDS: POTASSIUM CHLORIDE 20 MEQ/SWI 20 MEQ/100 ML IVPB IV SCH ×2 (11:00→13:10)
[2019-01-06] MEDS: ASPIRIN PO SCH (11:32)
--- NOTE | 2019-01-06 14:09 | PROGRESS NOTE ---
DATE: 01/06/2019 INTERVAL HISTORY: The patient was with marked confusion and agitation last night, attempting to pull out IVs and Booker. Received some Ativan and fairly sedated this morning. No other acute events. REVIEW OF SYSTEMS: Unable to obtain secondary to patient's mental status. LABS: WBC 8.0, hemoglobin 11.5, hematocrit 36.0, platelets 322,000. Sodium 146, potassium 3.3, bicarb 21, BUN 8, creatinine 0.6, glucose 116. VITALS: T-max 98.7 degrees, pulse 64, respirations 20, blood pressure 180/71, O2 saturation 95% on room air. PHYSICAL EXAMINATION: General: No acute distress. Vitals: As above. HEENT: Normocephalic, atraumatic. Slightly dry mucous membranes. Cardiovascular: Regular rate and rhythm. No murmurs noted. Pulmonary: Clear to auscultation bilaterally. No wheezing, rales, or rhonchi. Abdomen: Soft, nontender, nondistended. Bowel sounds positive. Extremities: Peripheral pulses remain barely palpable. Left foot wound approximately stable. No drainage and surrounding erythema remains resolved. Neurologic: Examination limited by patient's mental status. Pupils equal, round, and reactive to light. Moving all extremities spontaneously. Psychiatric: Asleep but arousable. Not following any commands currently. ASSESSMENT AND PLAN: 1. Left foot osteomyelitis, previously treated for uncertain length of time, at least 3 weeks but may have been getting antibiotics at outside hospital prior to that. On Zosyn and vancomycin initially but changed to daptomycin and cefepime by infectious disease. Vascular studies suggesting some level of obstruction. Wound actually looks pretty good but uncertain about any thoughts of healing. Awaiting further surgical recommendations. 2. Bacteremia, likely port infection. The patient with all bottles growing Staphylococcus epidermidis. Repeat blood cultures remain negative so far. Infectious disease favors true infection rather than contaminant. Will need several weeks of treatment to try and salvage her port. 3. Metabolic encephalopathy. Patient with known underlying dementia. Likely acute confusion related to infection and medication on top of that. Was a little sedated this morning after Ativan last night after severe agitation. We will try to do a little bit of Seroquel to try to keep her calm without knocking her out. 4. Hypertension. The patient has been refusing oral intake so on scheduled hydralazine. Still pretty high. We will increase dose a little bit and monitor. 5. Hyperlipidemia. Continue Lipitor when patient is willing to take pills. 6. Pubic rami fractures as seen on previous admission. Continue weightbearing as tolerated. Physical therapy following. Some healing noted on most recent images. 7. Hypokalemia. We will continue repletion and monitor. 9. diabetes mellitus: acceptable control on current regimen. monitor. [facility]
[2019-01-06] MEDS: NORVASC PO SCH (15:01)
[2019-01-06] MEDS: CUBICIN 300 MG in NS 100 ML IV SCH (16:58)
[2019-01-06] MEDS: SEROQUEL PO SCH (22:12)
[2019-01-06] MEDS: LANTUS INSULIN SUBQ SCH (22:22)
[2019-01-07] MEDS: MAXIPIME 2 GM in NS 100 ML IV SCH ×3 (01:57→20:25)
[2019-01-07] MEDS: APRESOLINE IV SCH ×3 (04:00→14:04)
[2019-01-07] MEDS: HUMALOG SUBQ SCH ×3 (06:50→20:26)
[2019-01-07 07:07] LABS: BASO# 0.03 X1000 (0.0-0.2); BASO% 0.4 % (0.0-0.8); EOS# 0.47 X1000 (0.0-0.7); EOS% 5.8 % (0.0-10.0); HEMATOCRIT 34.3 % (37.0-47.0); HEMOGLOBIN 10.7 g/dL (12.0-16.0); LYMPH# 1.34 X1000 (1.2-3.4); LYMPH% 16.6 % (20.5-51.1); MCH 27.2 PG (27-31); MCHC 31.2 g/dL (33-37); MCV 87.1 FL (81-99); MONO% 11.2 % (1.7-9.3); MPV 10.2 FL (7.4-10.4); NEUT# 5.32 X1000 (1.4-6.5); PLT 314 X1000 (130-400); RBC 3.94 XMIL (4.2-5.4); RDW 14.5 % (11.5-14.5); WBC 8.06 X1000 (4.8-10.8)
[2019-01-07 07:25] LABS: AGAP 12; BUN 7 mg/dL (8-22); CHLORIDE 104 mmol/L (98-107); CK TOTAL 91 U/L (24-173); COSMO 273; CREATININE 0.7 mg/dL (0.5-0.9); ESTIMATED GFR > 60; GLUCOSE 85 mg/dL (70-104); POTASSIUM 3.3 mmol/L (3.5-5.1); SODIUM 138 mmol/L (136-145); TCO2 22 mmol/L (25-35)
[2019-01-07] MEDS: SANTYL OINT TOP SCH (09:14)
[2019-01-07] MEDS: 1/2 NS 1,000 ML IV SCH (09:16)
[2019-01-07] MEDS: NORVASC PO SCH (09:17)
[2019-01-07] MEDS: ASPIRIN PO SCH (09:17)
--- NOTE | 2019-01-07 11:46 | PROGRESS NOTE ---
DATE: 01/07/2019 INTERVAL HISTORY: The patient remains roughly stable. Still with some intermittent confusion, agitation. A little more awake today, but still not at all cooperative. No acute events. REVIEW OF SYSTEMS: Unable to obtain secondary to the patient's mental status. LABORATORY DATA: WBC 8.0, hemoglobin 10.7, hematocrit 34.3, platelets 314,000. Sodium 138, potassium 3.3, BUN 7, creatinine 0.7, glucose 85. OBJECTIVE: Vital Signs: Temperature 98.7 degrees, pulse 74, respirations 15, blood pressure 96/75, O2 saturation 99% on room air. General: No acute distress, but does become agitated when I attempted to examine her. HEENT: Normocephalic, atraumatic. Moist mucous membranes. Cardiovascular: Regular rate and rhythm. No murmurs noted. Pulmonary: Exam limited by the patient's noncooperation, but no wheezing, rales, or rhonchi noted. Abdomen: Soft, nontender. Extremities: Left foot wound stable. No drainage. Surrounding erythema completely resolved. Neurologic: Pupils equal, round, reactive to light. Moving all extremities spontaneously and with what appears to be full strength. Psychiatric: Awake, alert, slightly agitated, largely noncooperative. ASSESSMENT AND PLAN: 1. Left foot osteomyelitis previously treated for uncertain length of time, at least 3 weeks, but may have had antibiotics at outside hospital prior to that. Zosyn and vancomycin initially here, but changed to daptomycin and cefepime by Infectious Disease. Vascular studies suggesting some fairly significant peripheral vascular disease. Dr. Prasad and Dr. Dias evaluated the patient, and are asking Dr. Ward to evaluate the patient for her peripheral arterial disease and whether she may need further surgery. 2. Bacteremia, likely port infection. Patient with all bottles on initial blood cultures growing Staphylococcus epidermidis. Repeat blood cultures are negative so far. Infectious Disease favors true infection rather than contaminant. Will need several weeks of treatment to try and salvage her port, but doing well so far. 3. Metabolic encephalopathy. Patient with known underlying dementia. Likely acute confusion related to infection. More awake today, but still quite agitated. The patient is reportedly fairly fluent in Kyrgyz at baseline, and did speak a few words to me of Kyrgyz just after she came in, but for the last few days has not spoken anything but Vietnamese. She has not been cooperative with trying to use the prop and effects designer. 4. Hypertension, on scheduled intravenous hydralazine until we can get her to take oral medication. 5. Hyperlipidemia. Continue Lipitor when she is willing to take pills. 6. Pubic rami fracture. Weightbearing as tolerated. Physical Therapy following. Some healing noted on most recent images. 7. Hypokalemia. Continues to be low. Will continue intravenous replacement, and monitor. 8. Diabetes mellitus. Good control on current regimen. Monitor. [facility]
--- NOTE | 2019-01-07 12:05 | INFECTIOUS DISEASE PROGRESS NO ---
DATE: 01/07/2019 PRESENT ILLNESS: The patient has Staph bacteremia, which I think originated from her right-sided subclavian catheter. She also has Pseudomonas osteomyelitis of the left foot. MEDICATIONS: The patient is on daptomycin for the staphylococcal infection. This is day 4 of treatment, with day 1 being the first day that the repeat blood cultures were sterile. The patient will require 10 more days of treatment with daptomycin. The patient has Pseudomonas osteomyelitis of the foot. She has received a week of treatment in the hospital here, and 2 weeks in the custodial. Therefore, she will need 3 more weeks to complete a 6-week course of treatment for the Pseudomonas foot osteomyelitis. The patient is receiving daptomycin and cefepime as mentioned above. PHYSICAL EXAMINATION: Vital Signs: Temperature is 98.5 degrees, pulse 74, respirations 15, blood pressure 96/75. General: This is a lethargic, elderly female. She is in no acute distress, and anytime someone comes up to examine her or to do something for her, she tells them in [place] to leave her alone. HEENT: No drainage noted from the nose or ears. Neck: The patient does not seem to have any pain when she turns her neck. Lungs: Clear to auscultation. Cardiovascular: Regular heart rate. Thorax: The patient has a right-sided subclavian catheter in place. The site is not red or swollen. Abdomen: Soft. It does not seem to be tender. Bones/Joints/Muscles: The patient's left foot infection with Pseudomonas has been treated for 3 weeks now, and will require 3 more weeks to complete the 6-week treatment course. IMAGING AND LABORATORY DATA: There is no new radiographic study. Lab for today shows a CBC with a white count of 8060, hemoglobin 10.7, and platelet count 314,000. CK is 91. Creatinine is 0.7. GFR is greater than 60. Repeat blood cultures were sterile on 01/03/2019. ASSESSMENT AND PLAN: The staph bacteremia will require 10 more days of treatment with daptomycin. The pseudomonas osteomyelitis of the foot will require 3 more weeks of treatment with cefepime. COMORBIDITIES: The patient is elderly, and she has diabetes mellitus and peripheral vascular disease. cc: MD DREW Rg
--- NOTE | 2019-01-07 17:39 | GENERAL SURGERY PROGRESS NOTE ---
DATE: 01/07/2019 Her history is detailed per Dr. Crabtree's consultation note. Unfortunately she has a wound on the left foot that is nonhealing. She appears to have some diminished flow in the foot. There are waveforms to the ankle. I think to truly evaluate her distal perfusion we should do a CTA with runoff. Her creatinine appears acceptable so we will order that for further evaluation of her vasculature. cc: Ric Ward MD
[2019-01-07] MEDS: CUBICIN 300 MG in NS 100 ML IV SCH (20:24)
[2019-01-07] MEDS: ATIVAN IV PRN (22:30)
[2019-01-07] MEDS: SEROQUEL PO SCH (22:44)
[2019-01-08] MEDS: MAXIPIME 2 GM in NS 100 ML IV SCH ×3 (01:23→17:03)
[2019-01-08] MEDS: APRESOLINE IV SCH ×5 (04:59→20:33)
[2019-01-08] MEDS: LANTUS INSULIN SUBQ SCH (04:59)
[2019-01-08] MEDS: HUMALOG SUBQ SCH ×4 (05:00→16:15)
[2019-01-08] MEDS: SANTYL OINT TOP SCH (10:00)
[2019-01-08] MEDS: ASPIRIN PO SCH (11:21)
[2019-01-08] MEDS: NORVASC PO SCH (11:21)
--- NOTE | 2019-01-08 12:36 | GENERAL SURGERY PROGRESS NOTE ---
DATE: 01/08/2019 It became evident that Ms. Nelson had had a CTA with runoff on the , thereby making the CTA ordered by me unnecessary. I did review the one from the . She has some disease in her popliteal and her tibial. So possibly endovascular intervention to evaluate the inline flow down her popliteal into her tibial is indicated. I will be out of town for a few days and would not be able to do this until the first of next week. This may provide enough flow down her posterior tibial to her arch to give her chance to heal but certainly no guarantees can be made. So possible endovascular intervention could help healing but no guarantee. cc: Ric Ward MD
[2019-01-08] MEDS: CUBICIN 300 MG in NS 100 ML IV SCH (16:15)
--- NOTE | 2019-01-08 16:39 | PROGRESS NOTE ---
DATE: 01/08/2019 SUBJECTIVE: Today, Ms. Nelson referred to be doing fairly okay. Denies any new complaint except for pains in the left foot. OBJECTIVE: Vital Signs: Blood pressure 128/35, pulse 83, respirations 16, and temperature 97.7 degrees. General: Ms. Nelson is an 83-year-old female. She is in bed. She was very minimally responsive to me, but she did say she was doing okay. Her vitals were stable. Lungs: Her chest was good air entry bilaterally. No crepitations. Cardiovascular: Regular rate and rhythm. Abdomen: Soft. No tenderness. Extremities: The left lower extremity has a wound in between the 3rd and the last toe. There was some exudations coming from the wound. FINANCE ASSISTANT: Patient was sleepy, but was easily arousable. She says she was doing okay. LABORATORY: No laboratory work today. CURRENT MEDICATIONS: All have been reviewed and no changes. ASSESSMENT: 1. Altered mental status on presentation secondary to sepsis induced encephalopathy. 2. Staph epidermidis (MRSA bacteremia). 3. Pseudomonas aeruginosa wound infection of the left foot. 4. Left foot osteomyelitis. 5. Severe peripheral vascular disease. The patient has been evaluated by vascular surgery. 6. Pubic ramus fracture. 7. Diabetes mellitus. cc: Sami Vidal MD
[2019-01-08] MEDS: ATIVAN IV PRN (20:33)
[2019-01-08] MEDS: OXY IR PO PRN (21:35)
[2019-01-08] MEDS: SEROQUEL PO SCH (21:35)
[2019-01-09] MEDS: MAXIPIME 2 GM in NS 100 ML IV SCH ×2 (00:17→09:51)
[2019-01-09] MEDS: 1/2 NS 1,000 ML IV SCH (00:36)
[2019-01-09] MEDS: ZOLOFT PO SCH ×2 (05:33→10:06)
[2019-01-09] MEDS: APRESOLINE IV SCH ×4 (05:34→21:44)
[2019-01-09] MEDS: LANTUS INSULIN SUBQ SCH ×2 (05:34→21:47)
[2019-01-09] MEDS: HUMALOG SUBQ SCH ×5 (05:36→21:46)
[2019-01-09] MEDS: SANTYL OINT TOP SCH (10:04)
[2019-01-09] MEDS: NORVASC PO SCH (10:06)
[2019-01-09] MEDS: ASPIRIN PO SCH (10:09)
[2019-01-09] MEDS: PRAVACHOL PO SCH (10:49)
--- NOTE | 2019-01-09 11:00 | PROGRESS NOTE ---
DATE: 01/09/2019 SUBJECTIVE: This morning, Ms. Nelson refers to be doing well. She denies any new complaints. She seems remarkably confused as well. OBJECTIVE: Vital signs: Blood pressure is 156/84, pulse of 82, respiration is 18, temperature 97.8 degrees. General: Ms. Nelson is an 83-year-old female. She is in bed, no distress. HEENT: Mucosa is pink and moist. Anicteric. Acyanotic. Neck: Supple. Chest: Good air entry bilateral. There were no crepitations, no rhonchi. Cardiovascular: Regular rate and rhythm. I did not hear any murmurs. Abdomen: Soft. There is an old infraumbilical surgical scar. There is also a right-sided scar on the anterior abdominal wall. Extremities: No pedal edema. 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 That site also has an open wound which has some mild slough. The distal pulse on the left is palpable, but the pulse on the right side is almost imperceptible. Central nervous system: Patient is awake, is alert, oriented to person but disoriented to place and time. She is able to move all her extremities. Chest wall: The patient has a generator pocket on the left anterior chest wall and a Mclain catheter on the right anterior chest wall. LABORATORY DATA: Glucose is 249 this morning. CURRENT MEDICATIONS: I have reviewed her current medications. 1. Amlodipine 2.5 p.o. daily. 2. Aspirin 81 mg daily. 3. Cefepime 2 g every 8 hours. 4. Daptomycin 300 mg every 24 hours. 5. Insulin glargine 25 units at bedtime. 6. Sliding scale insulin. 7. Ativan p.r.n. 8. Seroquel 12.5 p.o. at bedtime. 9. Zoloft 50 mg p.o. daily. 10. Normal saline at 60 mL/hour. IMAGING: Review of her aorta with a runoff and CTA done on 01/04/2019 has been reviewed. ASSESSMENT: 1. Altered mental status on presentation secondary to sepsis-induced encephalopathy on background of dementia. I think patient's mentation is back to her baseline. She does have some memory impairment and some confusion, which I think is her baseline. 2. Staph epidermidis (methicillin-resistant Staphylococcus aureus) bacteremia. The patient is currently on daptomycin. 3. Pseudomonas aeruginosa wound infection of the left foot. The patient is on cefepime and I think there is a plan to treat for 3 more weeks as per ID documentation yesterday. 4. Left foot osteomyelitis. We will continue with antimicrobial coverage. 5. Severe peripheral vascular disease. Vascular Surgery has evaluated Ms Nelson. There is a plan for possible intervention in the coming week. We are going to do an echocardiogram to rule out any severe systolic dysfunction. Once that is ruled out, we can start Ms. Nelson on cilostazol. She is currently on aspirin and will add a statin drug. 6. History of pubic ramus fracture noted. 7. Diabetes mellitus, controlled on insulin regimen. So today we are going to continue with the current antimicrobial coverage and also continue managing her comorbidities. Ms Nelson is pending an echocardiogram to rule out any severe systolic dysfunction that would preclude the use of cilostazol. cc: Sami Vidal MD
--- NOTE | 2019-01-09 13:59 | INFECTIOUS DISEASE PROGRESS NO ---
DATE: 01/09/2019 PRESENT ILLNESS: The patient has a Staph bacteremia which I think originated from her right subclavian catheter. She also has Pseudomonas osteomyelitis of the left foot. MEDICATIONS: The patient is on daptomycin for the Staph infection and cefepime for the Pseudomonas infection. This is day 6 of treatment with daptomycin and this is day 9 of treatment with cefepime for her Pseudomonas infection. PHYSICAL EXAMINATION: Vital Signs: Temperature is 98.7 degrees, pulse 83, respirations 20, blood pressure 86/43. General: This is a lethargic elderly female. She is in no acute distress. Head/eyes/ears/nose/throat: No drainage noted from the nose or ears. She was able to hear my spoken words. Neck: She does not have any pain when she moves her neck. Lungs: Clear to auscultation. Cardiovascular: Heart rate is regular. Thorax: The patient has a right-sided subclavian catheter in place. The site is not erythematous or purulent. Abdomen: Soft and nontender. Bone, Joints, Muscles: The patient's left foot has areas around the distal foot with eschars on them and no surrounding erythema. LAB AND RADIOLOGY: No new lab or radiographic study for today. ASSESSMENT AND PLAN: The patient will require 8 more days of daptomycin for bacteremia and the patient will require 19 more days of treatment with cefepime for her Pseudomonas infection. COMORBIDITIES: The patient is elderly and she has diabetes mellitus and peripheral vascular disease. cc: Bar Johnson MD MTDD
[2019-01-09] MEDS: ATIVAN IV PRN (17:07)
[2019-01-09] MEDS: CUBICIN 300 MG in NS 100 ML IV SCH (17:07)
[2019-01-09] MEDS: MAXIPIME 1 GM in NS 50 ML IV SCH (18:00)
[2019-01-09] MEDS ORDERED: MAXIPIME 1 GM in NS 50 ML IV SCH (18:00)
[2019-01-09] MEDS: SEROQUEL PO SCH (21:47)
[2019-01-10] MEDS: MAXIPIME 1 GM in NS 50 ML IV SCH ×3 (03:23→17:06)
[2019-01-10] MEDS: APRESOLINE IV SCH ×5 (03:24→22:20)
[2019-01-10] MEDS: HUMALOG SUBQ SCH ×4 (07:52→22:21)
[2019-01-10] MEDS: SANTYL OINT TOP SCH (09:38)
[2019-01-10] MEDS: ZOLOFT PO SCH (10:39)
[2019-01-10] MEDS: PRAVACHOL PO SCH (10:39)
[2019-01-10] MEDS: ASPIRIN PO SCH (10:39)
[2019-01-10] MEDS: NORVASC PO SCH (10:39)
--- NOTE | 2019-01-10 15:29 | PROGRESS NOTE ---
DATE: 01/10/2019 SUBJECTIVE: This morning Ms. Nelson refers to be doing okay. No new complaints. OBJECTIVE: Vital signs: Blood pressure is 154/85, pulse of 91, respirations 16, temperature is 97.5 degrees. General: Ms. Nelson is an 83-year-old female. She is in bed, no distress. HEENT: Mucosa is pink and moist. Anicteric. Acyanotic. Neck: Supple. Chest: Clear to auscultation. Cardiovascular: Regular rate and rhythm. No murmurs. No rubs. GI: Abdomen is soft. There is an old infraumbilical surgical scar. There is also a right-sided scar on the anterior abdominal wall. Extremities: No pedal edema. 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 There is an open wound at that site which has mild slough and some erythematous changes around the lesion. 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 Musculoskeletal: There is a pacemaker generator pocket on the left anterior chest wall. There is a Mclain catheter on the right anterior chest wall. LABORATORY DATA: None for today. Glucose is 129. PATIENT MEDICATIONS: Have all been reviewed. She is still on daptomycin and cefepime. ASSESSMENT: 1. Altered mental status on presentation secondary to sepsis induced encephalopathy on the background of dementia. 2. Staphylococcus epidermidis (methicillin-resistant Staphylococcus aureus bacteremia). The patient continues to be on daptomycin. Repeat blood cultures have been negative. 3. Pseudomonas aeruginosa wound infection of the left foot. The patient is on cefepime. 4. Suspected left foot osteomyelitis. 5. Severe peripheral vascular disease. The patient is pending vascular intervention. We had an echocardiogram yesterday. We are pending on the report to make a decision if she will benefit from cilostazol. 6. History of pubic ramus fracture, noted. 7. Diabetes mellitus. Controlled on insulin regimen. PLAN: So, per ID report, Ms. Nelson is going to require 8 more days of daptomycin for the bacteremia and 19 more days of treatment for the Pseudomonas infection of the left foot. cc: Sami Vidal MD
[2019-01-10] MEDS: ATIVAN IV PRN (15:42)
[2019-01-10] MEDS: CUBICIN 300 MG in NS 100 ML IV SCH (16:23)
--- NOTE | 2019-01-10 20:16 | ECHO REPORT ---
ORDER DATE: 01/09/2019 MEASUREMENTS: Septal thickness 1.0, left ventricular internal diameter in diastole 4.3, posterior wall thickness 0.8, left ventricular internal diameter in systole 2.4, aortic root 2.8, left atrium 3.9. SUMMARY: 1. Technically difficult study due to limited acoustic window quality. 2. Mild aortic valve sclerosis demonstrated, with adequate aortic valve opening evident. The peak gradient across the aortic valve is 17 mmHg, with mean gradient of 10 mmHg. There is trace aortic regurgitation. Mild mitral annular calcification is demonstrated, with trace mitral regurgitation. Tricuspid valve was without evidence of structural abnormality, while the pulmonic valve was not well visualized. There is trace tricuspid regurgitation. The aortic root is normal in size. 3. Normal left ventricular dimensions demonstrated. Estimated left ventricular ejection fraction appears to be at least 70%. No regional wall motion abnormalities are evident. The left atrium is mildly enlarged. The right atrium and right ventricle are normal in size, with grossly preserved right ventricular systolic performance. 4. No pericardial effusion. 5. Inferior vena cava not well demonstrated. CONCLUSIONS: 1. Technically difficult study. 2. Mild aortic valve sclerosis without significant stenosis, with trace aortic regurgitation. 3. Mild mitral annular calcification, with trace mitral regurgitation. 4. Estimated left ventricular ejection fraction at least 70%. 5. Mild left atrial enlargement. cc: MD Sami Madrigal MD
[2019-01-10] MEDS: SEROQUEL PO SCH (21:34)
[2019-01-10] MEDS: LANTUS INSULIN SUBQ SCH (22:21)
[2019-01-11] MEDS: MAXIPIME 1 GM in NS 50 ML IV SCH ×3 (01:34→19:23)
[2019-01-11] MEDS: APRESOLINE IV SCH ×4 (04:28→18:11)
[2019-01-11 06:36] LABS: HEMATOCRIT 34.7 % (37.0-47.0); HEMOGLOBIN 11.3 g/dL (12.0-16.0); MCH 28.1 PG (27-31); MCHC 32.6 g/dL (33-37); MCV 86.3 FL (81-99); MPV 9.6 FL (7.4-10.4); RBC 4.02 XMIL (4.2-5.4); RDW 14.9 % (11.5-14.5); WBC 7.24 X1000 (4.8-10.8)
[2019-01-11] MEDS: HUMALOG SUBQ SCH ×3 (06:49→18:07)
[2019-01-11 06:59] LABS: AGAP 21; ALBUMIN 3.1 g/dL (3.5-5.0); BUN 12 mg/dL (8-22); CALCIUM 9.1 mg/dL (8.8-10.2); CHLORIDE 100 mmol/L (98-107); COSMO 288; CREATININE 0.7 mg/dL (0.5-0.9); ESTIMATED GFR > 60; GLUCOSE 154 mg/dL (70-104); PHOSPHORUS 2.8 mg/dL (2.7-4.5); POTASSIUM 2.9 mmol/L (3.5-5.1); SODIUM 143 mmol/L (136-145); TCO2 22 mmol/L (25-35)
[2019-01-11] MEDS: PRAVACHOL PO SCH (10:30)
[2019-01-11] MEDS: ZOLOFT PO SCH (10:31)
[2019-01-11] MEDS: PLETAL PO SCH (10:32)
[2019-01-11] MEDS: ASPIRIN PO SCH (10:32)
[2019-01-11] MEDS: NORVASC PO SCH (10:33)
[2019-01-11] MEDS: SANTYL OINT TOP SCH (10:33)
--- NOTE | 2019-01-11 11:00 | INFECTIOUS DISEASE PROGRESS NO ---
DATE: 01/11/2019 HISTORY OF PRESENT ILLNESS: The patient has Pseudomonas osteomyelitis of the left foot, and she has a Staph bacteremia which I think originated from her right subclavian catheter. MEDICATIONS: This is day 8 of treatment with daptomycin for the bacteremia, and day 11 of treatment with cefepime for the Pseudomonas osteomyelitis. PHYSICAL EXAMINATION: Vital Signs: Temperature is 97.4 degrees, pulse 70, respirations 16, blood pressure 143/68. General: This is a lethargic elderly female. She appears to be in no acute distress. Head, eyes, ears, nose, and throat: Throat no drainage noted from the nose or ears. Neck: She did not seem to have any pain when I passively moved her neck. Lungs: Clear to auscultation. Cardiovascular: Heart rate is regular. Thorax: The patient has a right-sided subclavian catheter in place. There is no swelling or drainage. Abdomen: Soft and nontender. Bones/joints/muscles: The left foot has multiple wounds, they all are dry, some have black color. Others are somewhat erythematous. LABORATORIES AND X-RAY: There is no new radiographic study. The CBC shows a white count of 7240, hemoglobin 11.3, and platelet count 349,000. Creatinine is 0.7. GFR is greater than 60. ASSESSMENT AND PLAN: The patient will require 6 more days of daptomycin to complete treatment for bacteremia, and 17 more days of treatment for her Pseudomonas osteomyelitis with cefepime. COMORBIDITIES: The patient is elderly, she is a diabetic and she has peripheral vascular disease. cc: Bar Johnson MD
--- NOTE | 2019-01-11 13:00 | PROGRESS NOTE ---
DATE: 01/11/2019 SUBJECTIVE: This morning Ms. Nelson refers to be doing well. No new complaints. She was just less responsive to me. OBJECTIVE: Vital signs: Blood pressure is 119/42, pulse 75, respiration is 16, temperature is 97.4 degrees. General: Ms. Nelson is an 83-year-old female. She is in bed. No distress. HEENT: Mucosa is pink and moist. Anicteric. Acyanotic. Neck: Supple. Chest: Good air entry bilateral. There were no crepitations, no rhonchi. Cardiovascular: Regular rate and rhythm. Gastrointestinal: Abdomen is soft. There is some old infraumbilical surgical scar. There is also a right side abdominal wall old scar. Extremities: No pedal edema. The left lower extremity has both the 3rd and the 4 digits previously amputated. There is an open wound which has some slough in it with mild erythematous changes around the lesion. Central nervous system: Patient is sleeping but easily arousable. Musculoskeletal: There is a generator for a pacemaker on the left anterior chest wall. There is a Mclain catheter on the right anterior chest wall. LABORATORY DATA: CBC shows mild normocytic anemia. Chemistry shows low potassium. Otherwise the rest unremarkable. ASSESSMENT: 1. Altered mental status on presentation secondary to acute encephalopathy from maybe sepsis induced on background of dementia. 2. Staphylococcus epidermidis (Methicillin-resistant Staphylococcus aureus bacteremia). The patient is on daptomycin. Repeat blood cultures have been negative. 3. Pseudomonas aeruginosa wound infection of the left foot associated with suspected osteomyelitis. The patient continues to be on cefepime. 4. Severe peripheral vascular disease. The patient has been evaluated by Dr. Ward. There is a plan for possible vascular intervention next week. 5. History of pubic ramus fractures noted. 6. Diabetes mellitus, controlled on insulin regimen. PLAN: In general, I think Ms. Nelson is fairly okay. We are going to replace her potassium. We will also discontinue the Booker catheter today, encourage her to participate with physical therapy. Ms Nelson is planned to have 6 more days of daptomycin and 17 more days of cefepime for the Pseudomonas osteomyelitis. cc: Sami Vidal MD
[2019-01-11] MEDS: CUBICIN 300 MG in NS 100 ML IV SCH (18:14)
[2019-01-11] MEDS ORDERED: KLOR-CON PO ONE (18:14)
[2019-01-12] MEDS: ATIVAN IV PRN
[2019-01-12] MEDS: HUMALOG SUBQ SCH ×5 (00:01→20:36)
[2019-01-12] MEDS: APRESOLINE IV SCH ×5 (00:01→20:35)
[2019-01-12] MEDS: LANTUS INSULIN SUBQ SCH ×2 (00:03→20:35)
[2019-01-12] MEDS: MAXIPIME 1 GM in NS 50 ML IV SCH ×3 (03:04→19:00)
[2019-01-12] MEDS: PLETAL PO SCH ×4 (07:09→20:35)
[2019-01-12] MEDS: SEROQUEL PO SCH ×2 (07:11→20:35)
[2019-01-12 08:20] LABS: AGAP 18; ALBUMIN 3.1 g/dL (3.5-5.0); BUN 26 mg/dL (8-22); CALCIUM 9.3 mg/dL (8.8-10.2); CHLORIDE 105 mmol/L (98-107); COSMO 303; CREATININE 0.8 mg/dL (0.5-0.9); ESTIMATED GFR > 60; GLUCOSE 198 mg/dL (70-104); MAGNESIUM 1.4 mg/dL (1.5-2.7); PHOSPHORUS 2.1 mg/dL (2.7-4.5); POTASSIUM 2.8 mmol/L (3.5-5.1); SODIUM 147 mmol/L (136-145); TCO2 24 mmol/L (25-35)
[2019-01-12] MEDS ORDERED: POTASSIUM PHOSPHATE 60 MEQ in NS 250 ML IV ONE ×2 (08:51→12:00)
[2019-01-12] MEDS ORDERED: MAGNESIUM SULFATE 4 GM/S.W.I. 4 GM/100 ML IVPB IV ONE (08:52)
[2019-01-12] MEDS: POTASSIUM CHLORIDE 10 MEQ in 1/2 NS 1,000 ML IV SCH ×2 (11:20→22:35)
[2019-01-12] MEDS: NORVASC PO SCH ×2 (11:22→11:58)
[2019-01-12] MEDS: PRAVACHOL PO SCH ×2 (11:23→11:34)
[2019-01-12] MEDS: ASPIRIN PO SCH ×2 (11:24→11:43)
--- NOTE | 2019-01-12 11:24 | PROGRESS NOTE ---
DATE: 01/12/2019 SUBJECTIVE: This morning, Ms. Nelson refers to be doing well. Denies any new complaints. Per the nursing staff, she does not really want to put on her hospital gown. They also say she ate some of her breakfast, but not all. OBJECTIVE: Vital signs: Blood pressure is 160/91, pulse of 80, respiration is 20, temperature 97.2 degrees. The patient was saturating 100% on room air. General exam: Ms. Nelson is an 83- year-old female. She is in bed in no distress. HEENT: Mucosa is pink and moist. Anicteric. Acyanotic. Neck: Supple. Chest: Good air entry bilaterally. There were no crepitations, no rhonchi. Cardiovascular: Regular rate and rhythm. GI/Abdomen: Soft, is nontender. There is an old infraumbilical surgical scar. There is also some scar on the right lower quadrant. Extremities: No pedal edema. The left lower extremity has the 3rd and 4th digits previously amputated. There is an open wound which has some mild slough in it and erythematous changes around the lesion. 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 Musculoskeletal: There is a pacemaker generator pocket on the left anterior chest wall. There is a Mclain catheter on the right anterior chest wall. LABORATORY DATA: Sodium is 147, potassium is 2.8, glucose is 198. Patient's phosphorus and magnesium are remarkably low. Reviewed her current antimicrobial therapy. She is on daptomycin and cefepime. ASSESSMENT: 1. Altered mental status on presentation, improved. 2. Dementia. 3. Staphylococcus epidermidis (methicillin-resistant Staphylococcus aureus bacteremia). Patient is on daptomycin. Repeat blood cultures have been negative. 4. Pseudomonas aeruginosa wound infection of the left foot associated with suspected underlying osteomyelitis. Patient is on cefepime. 5. Severe peripheral vascular disease. Vascular Surgery is on board. 6. History of pelvic ramus fracture noted. 7. Diabetes mellitus, stable on insulin regimen. 8. Electrolyte abnormality, including hypernatremia and hypokalemia. We have changed the patient's intravenous fluids. 9. Hypophosphatemia and hypomagnesemia. We will replace and repeat. 10. Generalized weakness and deconditioning. The patient is being seen by physical therapy. cc: Sami Vidal MD
[2019-01-12] MEDS: ZOLOFT PO SCH (11:33)
[2019-01-12] MEDS: SANTYL OINT TOP SCH (11:39)
--- NOTE | 2019-01-12 14:40 | GENERAL SURGERY PROGRESS NOTE ---
DATE: 01/12/2019 I reviewed Ms. Nelson's CTA. We can try to evaluate her distal popliteal and posterior tibial. I would recommend that we intervene and see if we can be certain that her distal popliteal is open and balloon the posterior tibial if possible. That is the only thing I have got to offer that might improve her flow to her amputation site. Certainly there is no guarantee that it will make a difference but in view of the fact it is not healing think we should consider trying. We will treat her left groin with some antifungal cream prior to the intervention, tentatively will schedule this for Monday if I can work out the schedule. cc: Ric Ward MD
[2019-01-12] MEDS: LOTRIMIN 1% CREAM TOP SCH (15:27)
[2019-01-12] MEDS: CUBICIN 300 MG in NS 100 ML IV SCH (18:05)
[2019-01-13] MEDS: APRESOLINE IV SCH ×5 (02:36→22:56)
[2019-01-13] MEDS: MAXIPIME 1 GM in NS 50 ML IV SCH ×3 (02:36→18:29)
[2019-01-13] MEDS: LOTRIMIN 1% CREAM TOP SCH ×3 (05:10→22:59)
[2019-01-13] MEDS: POTASSIUM CHLORIDE 10 MEQ in 1/2 NS 1,000 ML IV SCH ×2 (05:20→17:34)
[2019-01-13] MEDS: HUMALOG SUBQ SCH ×6 (06:39→23:00)
[2019-01-13 08:01] LABS: ALBUMIN 2.6 g/dL (3.5-5.0); CALCIUM 8.6 mg/dL (8.8-10.2); MAGNESIUM 2.2 mg/dL (1.5-2.7); PHOSPHORUS 2.4 mg/dL (2.7-4.5); POTASSIUM 2.6 mmol/L (3.5-5.1)
--- NOTE | 2019-01-13 09:12 | GENERAL SURGERY PROGRESS NOTE ---
DATE: 01/13/2019 Ms. Nelson is sleeping this morning. We tentatively have her scheduled for a popliteal atherectomy and posterior tibial angioplasty in order to try to provide more flow to her foot. This scheduled for tomorrow. We will have to correct her potassium prior and bring her glucoses down in preparation for surgery. cc: Ric Ward MD
[2019-01-13] MEDS ORDERED: POTASSIUM PHOSPHATE 60 MEQ in NS 250 ML IV ONE (11:54)
--- NOTE | 2019-01-13 12:21 | PROGRESS NOTE ---
DATE: 01/13/2019 SUBJECTIVE: This morning, Ms. Nelson was sleeping. When she woke up, she said she was doing okay and that she did not have any new complaints. OBJECTIVE: Vital Signs: Blood pressure is 138/51, pulse of 80, respirations are 16, temperature is 98.1 degrees. General Examination: Ms. Nelson is an 83-year-old, female. She was in bed. No distress. Mucosa is pink and moist. Anicteric. Acyanotic. Neck: Supple. Chest: Good air entry bilaterally. No crepitations. No rhonchi. Cardiovascular: Regular rate and rhythm. No murmurs, no rubs, no gallops. GI: Abdomen was soft, nontender. There is an old infraumbilical surgical scar. There is also some scar on the right lower quadrant. Extremities: No pedal edema. The left lower extremity has the 3rd and 4th digits previously amputated. There is an open wound with some mild slough and erythematous changes there. 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 Musculoskeletal: There is a pacemaker generator pocket on the left anterior chest wall, a Mclain catheter on the left anterior chest wall. Laboratory Data: Sodium is 143, potassium is 2.6, glucose is high. ASSESSMENT: 1. Staphylococcus epidermidis (methicillin-resistant Staphylococcus aureus bacteremia). Patient is on daptomycin. Repeat blood cultures have been negative. 2. Altered mental status on presentation, presumably acute encephalopathy from sepsis on background dementia. 3. Pseudomonas aeruginosa wound infection of the left foot associated with suspected underlying osteomyelitis. Patient is on cefepime. 4. Severe peripheral vascular disease. The patient is pending vascular surgery tomorrow. 5. History of pelvic ramus fracture, noted. 6. Diabetes mellitus, on insulin regimen. We have uptitrated her insulin needs for better glycemic control. 7. Electrolyte abnormality including hypokalemia and hypophosphatemia. We will continue to replace. 8. Generalized weakness and deconditioning. Physical therapy is on board. cc: Sami Vidal MD
[2019-01-13] MEDS: SANTYL OINT TOP SCH ×2 (14:42→14:44)
[2019-01-13] MEDS: PLETAL PO SCH ×2 (14:44→22:59)
[2019-01-13] MEDS: ZOLOFT PO SCH (14:47)
[2019-01-13] MEDS: NORVASC PO SCH (14:47)
[2019-01-13] MEDS: ASPIRIN PO SCH (14:48)
[2019-01-13] MEDS: PRAVACHOL PO SCH (14:48)
[2019-01-13] MEDS: CUBICIN 300 MG in NS 100 ML IV SCH (15:07)
[2019-01-13] MEDS: SEROQUEL PO SCH (22:56)
[2019-01-13] MEDS: LANTUS INSULIN SUBQ SCH (22:58)
[2019-01-13] MEDS: ATIVAN IV PRN (23:17)
[2019-01-14] MEDS: MAXIPIME 1 GM in NS 50 ML IV SCH ×3 (02:56→18:15)
[2019-01-14] MEDS: APRESOLINE IV SCH ×5 (05:09→23:43)
[2019-01-14] MEDS: HUMALOG SUBQ SCH ×8 (06:54→23:29)
[2019-01-14 07:40] LABS: HEMATOCRIT 34.8 % (37.0-47.0); HEMOGLOBIN 10.7 g/dL (12.0-16.0); MCH 27.6 PG (27-31); MCHC 30.7 g/dL (33-37); MCV 89.7 FL (81-99); RBC 3.88 XMIL (4.2-5.4); RDW 15.4 % (11.5-14.5); WBC 8.17 X1000 (4.8-10.8)
[2019-01-14 08:18] LABS: AGAP 20; ALBUMIN 3.3 g/dL (3.5-5.0); BUN 18 mg/dL (8-22); CALCIUM 9.2 mg/dL (8.8-10.2); CHLORIDE 109 mmol/L (98-107); COSMO 300; CREATININE 0.7 mg/dL (0.5-0.9); ESTIMATED GFR > 60; GLUCOSE 75 mg/dL (70-104); PHOSPHORUS 2.5 mg/dL (2.7-4.5); SODIUM 151 mmol/L (136-145); TCO2 22 mmol/L (25-35)
[2019-01-14] MEDS: D5W 1,000 ML IV SCH (09:55)
--- NOTE | 2019-01-14 11:56 | GENERAL SURGERY PROGRESS NOTE ---
DATE: 01/14/2019 Unfortunately, Ms. Nelson ate breakfast, so we had to cancel her surgery. We will reschedule her when appropriate, when we can get on the schedule again. cc: Ric Ward MD
[2019-01-14] MEDS: ASPIRIN PO SCH (13:05)
[2019-01-14] MEDS: NEUTRA-PHOS PO SCH ×4 (13:05→23:41)
[2019-01-14] MEDS: NORVASC PO SCH (13:07)
[2019-01-14] MEDS: PLETAL PO SCH ×3 (13:07→23:42)
[2019-01-14] MEDS: PRAVACHOL PO SCH (13:08)
[2019-01-14] MEDS: ZOLOFT PO SCH (13:08)
--- NOTE | 2019-01-14 16:41 | PROGRESS NOTE ---
DATE: 01/14/2019 SUBJECTIVE: This morning Ms. Nelson refers to be doing fairly okay. No new complaints. She is just pending for surgery intervention. OBJECTIVE: Vital signs: Blood pressure is 115/86, pulse of 90, respiration is 19, temperature is 98.1 degrees. The patient is saturating 100% on room air. General: Ms. Nelson 83-year-old female. She is in bed in no distress. HEENT: Mucosa is pink and moist. Anicteric. Acyanotic. Neck: Supple. Chest: Clear to auscultation. No crepitations. No rhonchi. Cardiovascular: Regular rate and rhythm. There was no murmurs, no rubs no gallops. GI: Abdomen soft, nontender. There was an old infraumbilical surgical scar and some more scar on the right lower quadrant. Extremities: No pedal edema. The right lower extremity has the 3rd and 4 digits previously amputated. There is some scar tissue at the base and some erythematous changes around the lesion. 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 LABORATORY DATA: CBC shows normocytic anemia. Chemistry shows hypernatremia with hyperchloremia. Glucose is about 75. ASSESSMENT: 1. Staphylococcus epidermidis (methicillin resistant staphylococcus aureus) bacteremia. Patient is on daptomycin. Repeat blood cultures have been negative. 2. Altered mental status on presentation resolved. 3. Alzheimer's dementia. 4. 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 The patient is on cefepime. 5. Severe peripheral vascular disease. The patient is pending vascular surgery. 6. History of pelvic ramus fracture. 7. Diabetes mellitus on insulin regimen. 8. Generalized weakness and deconditioning. Patient is on physical therapy. 9. Hypernatremia with hyperchloremia, most likely due to the IV fluids. This has been switched to D5 for free water needs. cc: Sami Vidal MD
[2019-01-14] MEDS: CUBICIN 300 MG in NS 100 ML IV SCH (16:51)
[2019-01-14] MEDS: LOTRIMIN 1% CREAM TOP SCH ×2 (20:09→22:51)
--- NOTE | 2019-01-14 20:46 | INFECTIOUS DISEASE PROGRESS NO ---
DATE: 01/14/2019 PRESENT ILLNESS: Ms. Nelson is being treated for a Pseudomonas osteomyelitis of the left foot and a staph bacteremia which we think originated from her right subclavian catheter. The plan was for her to have a left popliteal atherectomy with left posterior tibial balloon angioplasty, however that has been delayed until tomorrow. MEDICATIONS: Today is day 11 of treatment with daptomycin 300 mg IV daily. She is also receiving cefepime 1 g IV every 8 hours for the Pseudomonas osteomyelitis. PHYSICAL EXAMINATION: Vital Signs: Temperature is 98.1 degrees, pulse rate 90, respiratory rate 19, blood pressure 115/86, O2 saturation 100% on room air. General: This is a chronically ill- appearing elderly female. She is lying in the bed on her left lateral side currently in no acute distress. HEENT: Atraumatic, normocephalic. Oral mucous membranes are pink and moist. Conjunctivae are pink. Neck: Supple. Trachea is midline. Cardiovascular: Heart rate is regular. Systolic murmur noted. Respiratory: Lung sounds were clear to auscultation bilaterally. No work of breathing is noted. Integumentary: Skin is warm and dry with eschar noted to the left foot in the area of the previously amputated toes. There is some necrosis as well as abrasions to the left foot. These areas are dry. Abdomen: Soft, flat and nontender. Bowel sounds are active. LABORATORY AND X-RAY: Today her white count is 8.17, hemoglobin 10.7, platelet count 316,000, creatinine is 0.7, estimated GFR is greater than 60. Her blood cultures originally grew a Staph epidermidis in both cultures and have been sterile since the 03 of January. No imaging reports today. ASSESSMENT AND PLAN: Ms. Nelson is on day 11 of treatment for her bacteremia and day 14 of treatment for the Pseudomonas osteomyelitis. For now we will continue daptomycin and cefepime as ordered. The plan is to go to surgery tomorrow to help promote her circulation to that left lower extremity. We will draw a CK in the morning since she is on daptomycin. These plans have been discussed with and recommended by Dr. Johnson. COMORBIDITIES: Include that she is elderly and diabetic with peripheral vascular disease. Dictated by NABIL Townsend for Bar Johnson MD cc: Bar Johnson MD [facility]
[2019-01-14] MEDS: LANTUS INSULIN SUBQ SCH (23:30)
[2019-01-14] MEDS: SANTYL OINT TOP SCH ×2 (23:31→23:32)
[2019-01-14] MEDS: SEROQUEL PO SCH (23:42)
[2019-01-15] MEDS: D5W 1,000 ML IV SCH (02:15)
[2019-01-15] MEDS: MAXIPIME 1 GM in NS 50 ML IV SCH ×3 (02:16→23:04)
[2019-01-15] MEDS: APRESOLINE IV SCH ×4 (02:16→21:22)
[2019-01-15] MEDS: HUMALOG SUBQ SCH ×7 (06:40→22:47)
[2019-01-15 07:24] LABS: AGAP 12; ALBUMIN 2.8 g/dL (3.5-5.0); BUN 17 mg/dL (8-22); CALCIUM 8.7 mg/dL (8.8-10.2); CHLORIDE 95 mmol/L (98-107); COSMO 275; CREATININE 0.7 mg/dL (0.5-0.9); ESTIMATED GFR > 60; GLUCOSE 167 mg/dL (70-104); POTASSIUM 3.5 mmol/L (3.5-5.1); SODIUM 135 mmol/L (136-145); TCO2 28 mmol/L (25-35)
[2019-01-15] MEDS: PLETAL PO SCH ×2 (11:10→21:22)
[2019-01-15] MEDS: ASPIRIN PO SCH (11:10)
[2019-01-15] MEDS: PRAVACHOL PO SCH (11:10)
[2019-01-15] MEDS: NORVASC PO SCH (11:11)
[2019-01-15] MEDS: LOTRIMIN 1% CREAM TOP SCH ×2 (11:12→21:23)
[2019-01-15] MEDS: NEUTRA-PHOS PO SCH ×4 (11:12→23:07)
[2019-01-15] MEDS: ZOLOFT PO SCH (11:27)
--- NOTE | 2019-01-15 14:50 | PROGRESS NOTE ---
DATE: 01/15/2019 SUBJECTIVE: This morning, Ms. eNlson refers to be doing well. Denies any new complaints. Per the nursing staff, the night was uneventful. OBJECTIVE: Vital Signs: Blood pressure is 125/93, pulse of 117, respirations 18, temperature 98.1 degrees, the patient is saturating 100% on room air. General: Ms. Nelson is an 83-year-old female. She is in bed. No distress. HEENT: Mucosa is pink and moist. Anicteric. Acyanotic. Neck: Supple. Chest: Good air entry bilaterally. There were no crepitations, no rhonchi. Cardiovascular: Regular rate and rhythm. There are no murmurs, no rubs, no gallops. GI: Abdomen was soft, nontender, minimally distended. There is an old infraumbilical surgical scar, and also some scar on the right lower abdomen. Extremities: No pedal edema. The right lower extremity has the third and the fourth digits previously amputated. There is some open wound there, which has some mild slough and erythematous changes of the skin on top of it. 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 LABORATORY DATA: Reviewed. The sodium is now 135, glucose is 167. MEDICATIONS: Medications have all been reviewed. ASSESSMENT: 1. Staphylococcus epidermidis (methicillin-resistant staphylococcus aureus bacteremia). The patient is on daptomycin. 2. Pseudomonas aeruginosa of the wound infection of the left foot associated with underlying osteomyelitis. The patient is on cefepime. 3. Severe peripheral vascular disease. The patient is being followed by Vascular Surgery. There is a plan for possible vascular intervention. 4. Alzheimer's dementia. 5. Diabetes mellitus, controlled on insulin regimen. 6. Generalized weakness and deconditioning. 7. Hypernatremia, improved. 8. History of pelvic ramus fracture. Noted. In general, I think Ms. Nelson is doing a lot better. Altered mental status, which brought her to the hospital, has significantly improved. We think she is now back to her baseline. She definitely does have some cognitive decline. She also only speaks Niuean at this moment. We are pending arrangements for Vascular Surgery for intervention. cc: Sami Vidal MD
[2019-01-15] MEDS: SANTYL OINT TOP SCH (14:53)
[2019-01-15] MEDS: CUBICIN 300 MG in NS 100 ML IV SCH (15:02)
--- NOTE | 2019-01-15 18:54 | GENERAL SURGERY PROGRESS NOTE ---
DATE: 01/15/2019 We will try once again for endovascular intervention on Ms. Nelson's toes left leg tomorrow. We will keep her n.p.o. after midnight and plan to do a popliteal atherectomy and tibial angioplasty if indicated and possible. cc: Ric Ward MD
[2019-01-15] MEDS: SEROQUEL PO SCH (21:22)
[2019-01-15] MEDS: LANTUS INSULIN SUBQ SCH (22:48)
[2019-01-16] MEDS: APRESOLINE IV SCH ×3 (03:00→15:12)
[2019-01-16] MEDS: MAXIPIME 1 GM in NS 50 ML IV SCH ×2 (04:46→15:11)
[2019-01-16] MEDS: HUMALOG SUBQ SCH ×6 (06:29→17:33)
[2019-01-16] MEDS ORDERED: XYLOCAINE-MPF 2% ONE (10:29)
[2019-01-16] MEDS ORDERED: ROBINUL ONE ×2 (10:29→12:23)
[2019-01-16] MEDS ORDERED: ZOFRAN ONE (10:29)
[2019-01-16] MEDS ORDERED: DIPRIVAN 1% ONE (10:30)
[2019-01-16] MEDS ORDERED: DECADRON ONE (10:30)
[2019-01-16] MEDS ORDERED: QUELICIN (DOSE) ONE (10:30)
[2019-01-16] MEDS ORDERED: NS 0 ML ONE (11:05)
[2019-01-16] MEDS ORDERED: SENSORCAINE-MPF 0.5%/EPI 1:200,000 ONE (11:05)
[2019-01-16] MEDS ORDERED: HEPARIN ONE ×2 (11:05)
[2019-01-16] MEDS ORDERED: KEFZOL ONE (11:05)
[2019-01-16] MEDS ORDERED: NS 2,000 ML ONE (11:06)
[2019-01-16] MEDS ORDERED: EPHEDRINE ONE (11:43)
[2019-01-16] MEDS ORDERED: HEPARIN (DOSE) ONE (11:51)
[2019-01-16] MEDS ORDERED: SODIUM CHLORIDE 0.9% 10 ML ONE (11:52)
[2019-01-16] MEDS ORDERED: OFIRMEV 1000 MG/ISOTONIC SOLN 1,000 MG/100 ML BOTTLE ONE (12:05)
[2019-01-16] MEDS ORDERED: ZEMURON ONE (12:21)
[2019-01-16] MEDS ORDERED: NEOSTIGMINE ONE (12:27)
[2019-01-16 12:45] LABS: URINE SOURCE CATH
[2019-01-16 12:49] LABS: BILIRUBIN URINE NEGATIVE (NEGATIVE); BLOOD URINE NEGATIVE (NEGATIVE); COLOR YELLOW; GLUCOSE URINE NEGATIVE (NEGATIVE); KETONE URINE NEGATIVE (NEGATIVE); LEUKOCYTES URINE TRACE (NEGATIVE); NITRITE URINE NEGATIVE (NEGATIVE); PROTEIN URINE 30 mg/dL (NEGATIVE); TURBIDITY URINE CLEAR (CLEAR); UROBILINOGEN URINE NORMAL (NORMAL)
[2019-01-16 12:51] LABS: UR EPITHELIAL CELLS <10 /HPF (<10); URINE BACTERIA NEGATIVE /HPF; URINE RBC <10 /HPF (<10); URINE WBC <10 /HPF (<10)
--- NOTE | 2019-01-16 13:49 | EKG Report ---
Test Performed on : 01/16/2019 1:43:47 PM Test Reason : new onset afib Blood Pressure : / mmHG Vent. Rate : 080 BPM Atrial Rate : 080 BPM P-R Int : 152 ms QRS Dur : 086 ms QT Int : 466 ms P-R-T Axes : 000 052 065 degrees QTc Int : 537 ms Sinus rhythm. with premature atrial complexes. Nonspecific T wave abnormality Prolonged QT Abnormal ECG When compared with ECG of 01-JAN-2019 11:51, (Unconfirmed) QT has lengthened Confirmed by Jolly GUALLPA, Hiren Swain ([id number]) on 01/17/2019 8:59:54 AM
[2019-01-16 14:57] LABS: HEMATOCRIT 32.1 % (37.0-47.0)
[2019-01-16] MEDS: ASPIRIN PO SCH (15:03)
[2019-01-16] MEDS: LOTRIMIN 1% CREAM TOP SCH (15:06)
[2019-01-16] MEDS: NEUTRA-PHOS PO SCH ×3 (15:07→17:16)
[2019-01-16] MEDS: NORVASC PO SCH (15:08)
[2019-01-16] MEDS: PLETAL PO SCH (15:08)
[2019-01-16] MEDS: PRAVACHOL PO SCH (15:08)
[2019-01-16] MEDS: SANTYL OINT TOP SCH (15:09)
[2019-01-16] MEDS: ZOLOFT PO SCH (15:09)
[2019-01-16] MEDS: NS 1,000 ML IV SCH (15:17)
--- NOTE | 2019-01-16 15:22 | OPERATIVE NOTE ---
PROCEDURE DATE : 01/16/2019 NAME OF PROCEDURE: 1. Left femoral artery antegrade access with ultrasound guidance. 2. Left peroneal artery balloon angioplasty. 3. Left anterior tibial artery balloon angioplasty. SURGEON: Ric Ward MD LEAD ATHLETE: Ibis PREOPERATIVE DIAGNOSES: 1. Nonhealing amputation site, left fourth toe. 2. Peripheral arterial disease. POSTOPERATIVE DIAGNOSES: 1. Nonhealing amputation site, left fourth toe. 2. Peripheral arterial disease. 3. Left tibioperoneal stenosis. 4. Left anterior tibial artery occlusion. DESCRIPTION OF PROCEDURE: Satisfactory general endotracheal anesthesia was achieved. Both groin and the left leg were prepped and draped in sterile fashion. We imaged the left common femoral artery with an ultrasound, identified it, and made a small stab excision and accessed the left common femoral using a Seldinger technique. We then passed a wire followed by a 7 tamazight sheath. We gave the patient 5,000 units of heparin. We shot an arteriogram revealed that the left superficial femoral artery and popliteal appeared adequate within the need for any intervention. The tibioperoneal trunk however had a significant stenosis with post stenotic dilatation and the anterior tibial artery was occluded near the ankle with reconstitution in the foot into the arm. The posterior tibial artery was completely occluded at its takeoff so we passed an SV-8 0.018 wire across the peroneal stenosis and used a 3 mm x 2 cm balloon inflated to 13 atmospheres for 1 minute. Completion arteriogram revealed complete resolution of this stenosis. We then switched to a Glidewire and used the Glidewire to go into the anterior tibial artery followed by a TrailBlazer. We then used the 0.018 wire and the TrailBlazer to traverse the occlusion in the distal anterior tibial artery. We removed the wire and shot an arteriogram through the TrailBlazer and this went into the arch of the foot. We replaced her 0.018 wire and then used a 3 mm x 6 mm balloon inflated to nominal pressures at 8 atmospheres for a minute. This resolved the occlusion in the anterior tibial and we had in-line flow then through the anterior tibial into the arch of the foot. We were completely satisfied with our result. We then removed the devices and used a Mynx closure device for the artery under the supplier quality manager's specifications. After holding the pressure for 5 minutes, we then did develop a small hematoma which required pressure again for 3 more minutes and a pressure dressing and this appeared to stabilize it. She tolerated the procedure satisfactorily. Estimated blood loss was 10 mL. Eighty-six mL of contrast were given. She was sent to the recovery room in stable condition. cc: Ric Ward MD
--- NOTE | 2019-01-16 16:24 | PROGRESS NOTE ---
DATE: 01/16/2019 SUBJECTIVE: This morning Ms. Nelson refers to be doing well. She just came from a surgical intervention. According to her, she is feeling better. OBJECTIVE: Vital signs: Blood pressure is 142/62, pulse of 83, respiration is 18, temperature is 97.4 degrees. General: Ms. Nelson is an 83-year-old female. She is in bed, no distress. HEENT: Mucosa is pink and moist. Anicteric. Acyanotic. Neck: Supple. Chest: Good air entry bilaterally. There were no crepitations, no rhonchi. Cardiovascular: Regular rate and rhythm. No murmurs. No rubs. No gallops. There is a pacemaker generator pocket on the left anterior chest wall and a Mclain catheter on the right. GI: Abdomen is soft. There is an old infraumbilical surgical scar and also a scar on the right lower abdomen. Extremities: No pedal edema. The right lower extremity is currently in a sterile dressing after the intervention. ACTION FINISHER: Patient is awake, alert, and oriented. Operative note shows the procedure done was a left femoral artery anterograde access with ultrasound, a left popliteal artery balloon angioplasty, and a left anterior tibial artery balloon angioplasty. ASSESSMENT: 1. Staphylococcus epidermidis (methicillin-resistant Staphylococcus aureus bacteremia). The patient is on daptomycin; today is day 12 of 14 days. Repeat blood cultures have been negative. 2. 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 The patient is currently on cefepime and Dr. Johnson will determine how long the treatment will go for. 3. Severe peripheral vascular disease. Ms. Nelson just underwent balloon angioplasty of the left peroneal artery and the anterior tibial artery with Dr. Ward in an attempt to help vascularize and improve wound healing on the left foot. 4. Alzheimer's dementia, stable. 5. Diabetes mellitus, controlled on insulin regimen. 6. History of pelvic ramus fracture, noted. 7. Generalized weakness and deconditioning. The patient has been seen on a daily basis by physical therapy. PLAN: So in general, Ms. Nelson has been in the hospital 15 days. She got admitted initially because of altered mental status due to infectious encephalopathy. It turns out that she had MRSA bacteremia and pseudomonal infection of the left foot with osteomyelitis. She is currently being treated with daptomycin for the bacteremia, a total of 14 days. I understand today is day 12, so she is left with 2 more days on the daptomycin. She is also on cefepime for Pseudomonas osteomyelitis, which I understand she is being treated for a total of 6 weeks. ID will determine the length of therapy on this. Ms. Nelson underwent vascular intervention today. We will wait for surgery to evaluate her in the morning and give their final recommendations. DISPOSITION: Ms. Nelson came from [facility] so I understand she will be okay to go back to continue with her physical rehabilitation. Previously it was communicated to me that the rehab will not be able to afford the daptomycin and since she is only left with 2 more doses to go, it might be reasonable to let her finish the treatment and then send her only on the cefepime. All of her other comorbidities are under control. cc: Sami Vidal MD
[2019-01-16] MEDS: CUBICIN 300 MG in NS 100 ML IV SCH (17:11)
--- NOTE | 2019-01-16 20:03 | GENERAL SURGERY PROGRESS NOTE ---
DATE: 01/16/2019 Ms Nelson is comfortable. She is lying flat in the bed. Her hematoma is small and is not changed from the recovery room. Her bandage on the foot is dry. Her hemoglobin is 10, hematocrit 32 this afternoon postop. We will recheck her labs in the morning. cc: Ric Ward MD
[2019-01-17] MEDS: MAXIPIME 1 GM in NS 50 ML IV SCH ×4 (01:04→21:44)
[2019-01-17] MEDS: APRESOLINE IV SCH ×5 (01:04→21:42)
[2019-01-17] MEDS: LANTUS INSULIN SUBQ SCH ×2 (01:05→21:51)
[2019-01-17] MEDS: HUMALOG SUBQ SCH ×8 (01:05→21:50)
[2019-01-17] MEDS: NEUTRA-PHOS PO SCH ×5 (01:06→21:51)
[2019-01-17] MEDS: PLETAL PO SCH ×2 (01:06→12:59)
[2019-01-17] MEDS: SEROQUEL PO SCH ×2 (01:06→21:52)
[2019-01-17] MEDS: LOTRIMIN 1% CREAM TOP SCH ×3 (01:07→21:49)
[2019-01-17] MEDS: NS 1,000 ML IV SCH ×3 (06:24→21:43)
[2019-01-17 07:13] LABS: BASO# 0.02 X1000 (0.0-0.2); BASO% 0.2 % (0.0-0.8); EOS# 0.04 X1000 (0.0-0.7); EOS% 0.4 % (0.0-10.0); HEMATOCRIT 27.9 % (37.0-47.0); HEMOGLOBIN 8.7 g/dL (12.0-16.0); LYMPH# 1.32 X1000 (1.2-3.4); LYMPH% 14.1 % (20.5-51.1); MCH 27.7 PG (27-31); MCHC 31.2 g/dL (33-37); MCV 88.9 FL (81-99); MONO# 1.03 X1000 (0.11-0.59); MPV 9.9 FL (7.4-10.4); NEUT# 6.94 X1000 (1.4-6.5); NEUT% 74.3 % (42.2-75.2); PLT 275 X1000 (130-400); RBC 3.14 XMIL (4.2-5.4); RDW 14.9 % (11.5-14.5); WBC 9.35 X1000 (4.8-10.8)
[2019-01-17 07:32] LABS: AGAP 12; BUN 15 mg/dL (8-22); CALCIUM 8.8 mg/dL (8.8-10.2); CHLORIDE 103 mmol/L (98-107); COSMO 286; CREATININE 0.6 mg/dL (0.5-0.9); ESTIMATED GFR > 60; GLUCOSE 105 mg/dL (70-104); SODIUM 143 mmol/L (136-145); TCO2 28 mmol/L (25-35)
[2019-01-17] MEDS: ASPIRIN PO SCH (12:55)
[2019-01-17] MEDS: NORVASC PO SCH (12:58)
[2019-01-17] MEDS: PERIDEX MT SCH ×2 (12:59→21:59)
[2019-01-17] MEDS: PRAVACHOL PO SCH (12:59)
[2019-01-17] MEDS: SANTYL OINT TOP SCH (13:01)
[2019-01-17] MEDS: ZOLOFT PO SCH (13:02)
[2019-01-17] MEDS ORDERED: D50W SYRINGE ONE (16:27)
[2019-01-17] MEDS ORDERED: D50W SYRINGE IV ONE (16:33)
[2019-01-17] MEDS: PLAVIX PO SCH (17:55)
[2019-01-17] MEDS: CUBICIN 300 MG in NS 100 ML IV SCH (18:02)
[2019-01-17] MEDS: ATIVAN IV PRN (18:10)
--- NOTE | 2019-01-17 20:25 | PROGRESS NOTE ---
DATE: 01/17/2019 SUBJECTIVE: This patient is sleepy, but arousable, she is following commands. She is oriented to time though. I read the previous notes and apparently she has been oriented, it looks like she had a procedure done yesterday, a left femoral artery antegrade access with ultrasound and left popliteal artery with left anterior tibial artery balloon angioplasty. For now we will continue with the same management. Apparently, she came from [facility], so probably is going to be okay at some point to discharge this patient back to that place for physical rehabilitation, I believe. Tomorrow the last dose of daptomycin. I will wait for the recommendations of Surgery Department and Infectious Disease Department to see if we are going to be able to discharge this patient soon, but at this time we will just monitor. OBJECTIVE: Vital Signs: Temperature 97.8 degrees, pulse 83, respiratory rate 16, blood pressure 133/55, oxygen saturation 95% on room air. HEENT: Head normocephalic, no trauma, PERRLA. Neck: Supple. No JVD. Central trachea. Chest: Clear to auscultation. No wheezing. No rales. She has a pacemaker and a Mclain catheter on the right. Cardiovascular: Regular rate and rhythm. Abdomen: Soft. There is an old infraumbilical surgical scar at the level of the right lower abdomen. Extremities: The right lower extremity is covered with a dressing. Central Nervous System: The patient is sleepy, but arousable. She is answering some of my questions, but falling right back to sleep. LABORATORY: WBC 9.3, hemoglobin 8.7, hematocrit 27.9, platelets 175,000. Sodium 143, potassium 4.0, chloride 103, bicarbonate 28, BUN 15, creatinine 0.6, glucose 105, calcium 8.8. ASSESSMENT AND PLAN: 1. Staphylococcus epidermidis. Methicillin-resistant Staphylococcus aureus bacteremia. The patient has been on daptomycin, today is #13 of 14 days, repeat cultures have been negative. Infectious Disease Department on board. We will continue to monitor. 2. Pseudomonas aeruginosa wound infection of the left foot, associated with underlying osteomyelitis. The patient is currently on cefepime, I will let Infectious Disease Department to determine the length of the treatment. 3. Severe peripheral vascular disease, status post balloon angioplasty of the left peroneal artery and the anterior tibial artery by Dr. Ward, hopefully that will help the wound healing on the left foot. We will continue to monitor this closely. I will wait for more recommendations by Surgery Department. 4. Alzheimer's dementia, stable. 5. Diabetes mellitus, controlled with insulin regimen. 6. History of pelvic ramus fracture noted. 7. Generalized weakness and deconditioning. Continue physical therapy. 8. Anemia. Hemoglobin dropped from 10.4 to 8.7. We will monitor this closely and we will transfuse as needed. DISPOSITION: I believe this patient is coming from [facility] so probably we can send her back to this place for some rehabilitation, it looks like we are going to complete treatment with daptomycin during this hospitalization as well so she can get only the cefepime, but I will wait for more recommendations from surgery and Infectious Disease Department. cc: Mason García MD
--- NOTE | 2019-01-17 21:11 | GENERAL SURGERY PROGRESS NOTE ---
DATE: 01/17/2019 SUBJECTIVE: Ms. Nelson has a moderate hematoma in the left groin, but it has not increased any since yesterday. LABORATORY DATA: Hemoglobin 8.7, hematocrit 27.9. ASSESSMENT AND PLAN: She is already on aspirin and Pletal, and we can leave her on that for now, even though I think aspirin and Plavix might be more appropriate. We will switch her from the Pletal to Plavix. cc: Ric Ward MD
[2019-01-18] MEDS: APRESOLINE IV SCH ×4 (01:49→22:55)
[2019-01-18] MEDS: MAXIPIME 1 GM in NS 50 ML IV SCH ×3 (05:39→22:55)
[2019-01-18] MEDS: NS 1,000 ML IV SCH (05:51)
[2019-01-18 07:26] LABS: HEMATOCRIT 30.1 % (37.0-47.0); HEMOGLOBIN 9.5 g/dL (12.0-16.0)
[2019-01-18 07:52] LABS: AGAP 12; BUN 7 mg/dL (8-22); CALCIUM 8.5 mg/dL (8.8-10.2); CHLORIDE 101 mmol/L (98-107); COSMO 281; CREATININE 0.5 mg/dL (0.5-0.9); ESTIMATED GFR > 60; GLUCOSE 56 mg/dL (70-104); POTASSIUM 3.2 mmol/L (3.5-5.1); SODIUM 143 mmol/L (136-145); TCO2 30 mmol/L (25-35)
[2019-01-18] MEDS: HUMALOG SUBQ SCH ×7 (07:53→22:56)
[2019-01-18] MEDS: ASPIRIN PO SCH (09:09)
[2019-01-18] MEDS: NORVASC PO SCH (09:09)
[2019-01-18] MEDS: ZOLOFT PO SCH (09:09)
[2019-01-18] MEDS: PRAVACHOL PO SCH (09:10)
[2019-01-18] MEDS: PLAVIX PO SCH (09:10)
[2019-01-18] MEDS: NEUTRA-PHOS PO SCH ×4 (09:10→23:05)
[2019-01-18] MEDS: PERIDEX MT SCH ×2 (09:11→22:55)
[2019-01-18] MEDS: SANTYL OINT TOP SCH (09:11)
[2019-01-18] MEDS: LOTRIMIN 1% CREAM TOP SCH ×3 (09:12→23:06)
--- NOTE | 2019-01-18 12:59 | INFECTIOUS DISEASE PROGRESS NO ---
DATE: 01/18/2019 PRESENT ILLNESS: Ms. Nelson is being treated for Pseudomonas osteomyelitis of the left foot as well as a staph bacteremia which we think came from her right subclavian catheter. She has had revascularization with balloon angioplasty to that left lower extremity. MEDICATIONS: Based on her sterile blood cultures, today is day #15 of treatment with daptomycin 300 mg IV every 24 hours and day #18 of treatment for the Pseudomonas osteomyelitis with cefepime 1 g IV every 8 hours. PHYSICAL EXAMINATION: Vital Signs: Temperature is 97.7 degrees, pulse rate 85, respiratory rate 20, blood pressure 156/104. O2 saturation is 95% on room air. General: This is a chronically ill-appearing, elderly female. She is lying in the bed agitated and combative and confused. Assessment was difficult. HEENT: Appears atraumatic normocephalic. Oral mucous membranes are pink and moist. Conjunctivae are pale. Neck: Supple. Trachea is midline. Cardiovascular: Heart rate is regular. S1-S2 noted. Abdomen: Soft and appears to be nontender. Bowel sounds are audible. Respiratory: Lung sounds are clear to auscultation bilaterally. No work of breathing is noted. Integumentary: Skin is warm and dry. The left foot has an eschar noted with previously amputated toes and some dry abrasions noted to the anterior foot. There is a right subclavian central line. That site is without edema, erythema or drainage. Neurologic: She is awake, alert, and combative, able to move all extremities. She is noted to always be in the left lateral position. LABORATORY AND X-RAY: Yesterday her white count was 9.35. Today her hemoglobin is 9.5, platelet count yesterday was 275,000. Today her creatinine is 0.5 with an estimated GFR greater than 60. She had a urinalysis 2 days ago with negative urine bacteria and less than 10 WBCs. No imaging reports today. ASSESSMENT AND PLAN: Ms. Nelson is status post revascularization of the left lower extremity. He is being treated for an osteomyelitis which has grown Pseudomonas to that left foot. We will continue cefepime as ordered. She also has a Staph bacteremia, and has already received 15 days of treatment so we will stop the daptomycin at this time since the bacteria in her blood was a coag-negative staph. We should be able to leave the central line in place. These plans have been discussed with and recommended by Dr. Johnson. COMORBIDITIES: Of the patient include that she is elderly with diabetes mellitus and peripheral vascular disease and confusion. Dictated by NABIL Townsend for Bar Johnson MD cc: Bar Johnson MD MTDD
[2019-01-18] MEDS: KLOR-CON PO ONE ×2 (14:20→15:20)
--- NOTE | 2019-01-18 14:46 | PROGRESS NOTE ---
DATE: 01/18/2019 SUBJECTIVE: The patient is resting comfortably in bed. She is not eating too much but she seems to be more oriented today compared with yesterday. She is able to say her name, date of and she knows she is in a hospital, she does not know which one though, she is not oriented to time. I do not know if this patient has a baseline dementia. OBJECTIVE: Vital Signs: Temperature 97.7 degrees, pulse 87, respiratory rate 18, blood pressure 117/89, oxygen saturation 95% on room air. HEENT: Head normocephalic, no trauma. PERRLA. Neck: Supple no JVD. No masses. Central trachea. Chest: Clear to auscultation. No wheezing. No rales. She has a pacemaker and a Mclain catheter on the right. Cardiovascular: Regular rate and rhythm. Abdomen: Soft. There is some old infraumbilical surgical scar at the level of the right lower abdomen as well. Extremities: Right lower extremity is covered with a dressing. Neurological: The patient is sleepy but arousable. She is answering to some of my questions. She knows her name and date of , she is following commands but she is not oriented to time. She knows she is in the hospital. LABORATORY DATA: Hemoglobin 9.5, hematocrit 30.1. Sodium 143, potassium 3.2, chloride 101, bicarbonate 30, BUN 7, creatinine 0.5, glucose 56, calcium 8.5. ASSESSMENT AND PLAN: 1. Staphylococcus epidermidis/Methicillin-resistant Staphylococcus aureus bacteremia. The patient has been placed on daptomycin and today we have stopped the treatment because she already completed 2 weeks with this medication. Repeated cultures are negative. Infectious Disease Department on board. We will continue with the same management. 2. 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 This patient is currently on cefepime which I will continue. 3. Severe peripheral vascular disease, status post balloon angioplasty of the left peroneal artery and the anterior tibial artery by Dr. Ward. Hopefully that will help the wound healing on the left foot. We will continue to monitor this patient closely. I will wait for the recommendations of Surgery Department. Probably we need to keep this patient until Monday so she can go back to the rehab center. 4. Alzheimer's dementia, stable. 5. Diabetes mellitus, controlled with insulin regimen. 6. History of pelvic ramus fracture noted. 7. Generalized weakness and physical deconditioning. Continue physical therapy. 8. Anemia. Hemoglobin yesterday was 8.7, today is 9.5. We will continue to monitor. 9. Hypokalemia. I will replace the potassium. 10. Disposition. This patient is coming from [facility] so once this patient is ready to be discharged, she will go back to this place for rehabilitation. Treatment with daptomycin has been completed and stopped today, we will continue with cefepime. Recently she had a balloon angioplasty done so I will wait for the final recommendations of Surgery Department to see if this patient can be discharged during this or Monday. cc: Mason García MD
--- NOTE | 2019-01-18 21:09 | GENERAL SURGERY PROGRESS NOTE ---
DATE: 01/18/2019 SUBJECTIVE/OBJECTIVE: Her small hematoma is no different in her left groin. Her wound in the foot looks about the same. ASSESSMENT AND PLAN: I would continue with Santyl ointment to the foot. cc: Ric Ward MD
[2019-01-18] MEDS: SEROQUEL PO SCH ×2 (22:57→23:07)
[2019-01-18] MEDS: LANTUS INSULIN SUBQ SCH (23:08)
[2019-01-19] MEDS: APRESOLINE IV SCH ×4 (02:09→21:29)
[2019-01-19] MEDS: MAXIPIME 1 GM in NS 50 ML IV SCH ×3 (05:01→21:29)
[2019-01-19] MEDS: NS 1,000 ML IV SCH ×3 (05:02→17:59)
[2019-01-19] MEDS: HUMALOG SUBQ SCH ×7 (07:28→21:43)
[2019-01-19] MEDS: NEUTRA-PHOS PO SCH ×5 (09:50→21:29)
[2019-01-19] MEDS: NORVASC PO SCH (09:51)
[2019-01-19] MEDS: ASPIRIN PO SCH (09:51)
[2019-01-19] MEDS: PRAVACHOL PO SCH (09:51)
[2019-01-19] MEDS: PERIDEX MT SCH ×2 (09:54→21:30)
[2019-01-19] MEDS: ZOLOFT PO SCH (09:58)
[2019-01-19] MEDS: PLAVIX PO SCH (09:58)
[2019-01-19] MEDS: ATIVAN IV PRN ×2 (12:40→22:08)
[2019-01-19 12:47] LABS: HEMATOCRIT 27.5 % (37.0-47.0); HEMOGLOBIN 8.5 g/dL (12.0-16.0)
[2019-01-19] MEDS: SANTYL OINT TOP SCH (12:48)
[2019-01-19 13:04] LABS: AGAP 12; BUN 11 mg/dL (8-22); CALCIUM 7.7 mg/dL (8.8-10.2); CHLORIDE 104 mmol/L (98-107); COSMO 281; CREATININE 0.6 mg/dL (0.5-0.9); ESTIMATED GFR > 60; GLUCOSE 102 mg/dL (70-104); POTASSIUM 3.1 mmol/L (3.5-5.1); SODIUM 141 mmol/L (136-145); TCO2 25 mmol/L (25-35)
[2019-01-19] MEDS ORDERED: KLOR-CON PO ONE (13:16)
--- NOTE | 2019-01-19 13:36 | PROGRESS NOTE ---
DATE: 01/19/2019 SUBJECTIVE: Patient is resting comfortably in bed. She is not eating too much. She seems to be more oriented today compared with yesterday. She was able to say her name, date of and she is following commands. She is not oriented to time or place today. She has a history of dementia. OBJECTIVE: Vital Signs: Temperature 98.7 degrees, pulse 80, respiratory rate 18, blood pressure 112/89, oxygen saturation 97% on room air. HEENT: Head normocephalic, no trauma. PERRLA. Neck: Supple. No JVD. No masses. Central trachea. Chest: Clear to auscultation. No wheezing. No rales. She has a pacemaker. Cardiovascular: Regular rate and rhythm. Abdomen: Soft. There is an old infraumbilical scar and also a right lower abdomen scar as well. Extremities: Right lower extremity is exposed, it has no dressing today. The 3rd and 4th digits have been prepped previously amputated. There is a left foot ulcer, it looks dry, but I do not see any big changes compared with 2 days ago. Per Surgery Department, the plan is to continue with santal void ointment to the left to the foot. LABORATORY DATA: WBC 8.5, hemoglobin 27.5. Sodium 141, potassium 3.1, chloride 104, bicarbonate 25, BUN 11, creatinine 0.6, glucose 102. ASSESSMENT AND PLAN: 1. Staphylococcus epidermidis/Methicillin-resistant Staphylococcus aureus bacteremia. This patient received treatment already with daptomycin which has been stopped. New cultures are negative. Infectious Disease on board. 2. Pseudomonas aeruginosa wound infection of the left foot, associated with underlying osteomyelitis. The patient is currently on cefepime which I will continue. 3. Severe peripheral vascular disease, status post balloon angioplasty of the left peroneal artery and the anterior tibial artery by Dr. Ward. Hopefully that will help the wound healing of the left foot. We will continue to monitor this patient. I do not see any big changes compared with yesterday. I will wait for the final recommendations of Surgery Department to see if I can transfer this patient back to her rehab center[facility]. 4. Alzheimer's dementia, stable. 5. Diabetes mellitus, controlled with insulin regimen. 6. Generalized weakness and physical deconditioning. Continue physical therapy. 7. Anemia, stable. Hemoglobin 2 days ago was 8.7, today is 8.5. 8. Hypokalemia. We will replace. Overall, this patient seems to be stable. She is coming from [facility]. She does have dementia. She had a procedure done recently and I will wait for the final recommendations from Surgery Department to transfer this patient back to the [facility]. cc: Mason García MD MTDD
[2019-01-19] MEDS: CALMOSEPTINE OINTMENT TOP PRN (14:20)
[2019-01-19] MEDS: LOTRIMIN 1% CREAM TOP SCH ×2 (15:35→23:49)
[2019-01-19] MEDS: CULTURELLE PO SCH (21:43)
[2019-01-19] MEDS: LANTUS INSULIN SUBQ SCH (21:43)
[2019-01-19] MEDS: NON-FORMULARY BULK MED PO SCH (23:49)
[2019-01-20] MEDS: APRESOLINE IV SCH ×4 (01:48→20:08)
[2019-01-20] MEDS: MAXIPIME 1 GM in NS 50 ML IV SCH ×3 (04:18→20:07)
[2019-01-20 06:42] LABS: HEMATOCRIT 28.5 % (37.0-47.0)
[2019-01-20] MEDS: NS 1,000 ML IV SCH ×2 (07:01→17:35)
[2019-01-20 07:02] LABS: AGAP 14; BUN 10 mg/dL (8-22); CALCIUM 8.3 mg/dL (8.8-10.2); CHLORIDE 103 mmol/L (98-107); COSMO 279; CREATININE 0.5 mg/dL (0.5-0.9); ESTIMATED GFR > 60; GLUCOSE 50 mg/dL (70-104); POTASSIUM 3.3 mmol/L (3.5-5.1); SODIUM 142 mmol/L (136-145); TCO2 25 mmol/L (25-35)
[2019-01-20] MEDS ORDERED: KLOR-CON PO ONE (09:10)
[2019-01-20] MEDS: ZOLOFT PO SCH (09:31)
[2019-01-20] MEDS: ASPIRIN PO SCH (09:31)
[2019-01-20] MEDS: CULTURELLE PO SCH ×2 (09:32→20:08)
[2019-01-20] MEDS: ARICEPT PO SCH (09:32)
[2019-01-20] MEDS: PRAVACHOL PO SCH (09:33)
[2019-01-20] MEDS: PLAVIX PO SCH (09:33)
[2019-01-20] MEDS: NORVASC PO SCH (09:33)
[2019-01-20] MEDS: NEUTRA-PHOS PO SCH ×4 (09:33→20:08)
[2019-01-20] MEDS: PERIDEX MT SCH ×2 (09:33→22:44)
[2019-01-20] MEDS: HUMALOG SUBQ SCH ×7 (10:50→22:50)
[2019-01-20] MEDS: SANTYL OINT TOP SCH (12:41)
--- NOTE | 2019-01-20 13:16 | PROGRESS NOTE ---
DATE: 01/20/2019 SUBJECTIVE: The patient is resting comfortably in bed. She is not eating too much, but she seems to be more awake and oriented today, but she does have baseline dementia. She is able to say her name, date of , and she is following commands. She is not oriented to time or place. PHYSICAL EXAMINATION: Vital Signs: Temperature 98 degrees, pulse 83, respiratory rate 15, blood pressure 143/73, oxygen saturation 98 on room air. HEENT: Head normocephalic. No trauma. PERRLA. Neck: Supple. No JVD. No masses. Central trachea. Chest: Clear to auscultation. No wheezing. No rales. She has a pacemaker. Cardiovascular: RRR. Abdomen: Soft. There are some old scars. No signs of infection. Extremities: Right lower extremity has no dressing today. Her third and fourth digits have been previously amputated. There is a left foot ulcer. I do not see any big changes compared with 3 days ago. Surgery Department on board. LABORATORY DATA: Hemoglobin 9, hematocrit 28.5. Sodium 142, potassium 3.3, chloride 103, bicarbonate 25, BUN 10, creatinine 0.5, glucose 163, calcium 8.3. ASSESSMENT AND PLAN: 1. Staphylococcus epidermidis/methicillin-resistant staphylococcus aureus bacteremia. This patient received treatment already with daptomycin, and has been completed. New cultures are negative. Infectious Disease on board. 2. 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 This patient is currently on cefepime, which I will continue. Infectious Disease Department on board. 3. Severe peripheral vascular disease, status post balloon angioplasty of the left peroneal artery and the anterior tibial artery by Dr. Ward. Hopefully, that will help the wound to heal better. Will continue to monitor this patient for now. I do not see any big changes compared with 3 days ago. 4. Alzheimer's dementia, stable. 5. Type 2 diabetes, controlled with insulin regimen. 6. Generalized weakness and physical deconditioning. I think this is her baseline. Continue physical therapy. 7. Anemia, stable. Will continue to monitor the hemoglobin. 8. Hypokalemia. I will replace the potassium. Overall, I think this is her baseline, and I think this patient is stable. I do believe she can be discharged. We would need to wait for the final recommendation from Surgery Department. She can go back to her [facility] if surgery agrees with that. cc: Mason García MD
[2019-01-20] MEDS: NON-FORMULARY BULK MED PO SCH ×2 (13:46→22:52)
[2019-01-20] MEDS: LOTRIMIN 1% CREAM TOP SCH ×2 (13:47→22:51)
--- NOTE | 2019-01-20 18:40 | GENERAL SURGERY PROGRESS NOTE ---
DATE: 01/20/2019 SUBJECTIVE: The patient did not want to participate in an exam today. I tried to examine her foot with a nurse, but she was uncooperative. The wound as best I can tell has a slight layer of slough but no gross purulence or necrosis. The foot is not warm, swollen, or red. ASSESSMENT/PLAN: 83-year-old female with peripheral vascular disease and nonhealing foot wound after amputation. At this point, I do not think any acute surgery needs to be done to the foot. I think she could be discharged home. She had previously seen [*] for consultation of this diabetic foot ulcer, and I would recommend follow up with him after discharge for further care. cc: Miguel Crabtree MD
[2019-01-20] MEDS: LANTUS INSULIN SUBQ SCH (22:44)
[2019-01-21] MEDS: APRESOLINE IV SCH ×2 (02:10→12:44)
[2019-01-21] MEDS: MAXIPIME 1 GM in NS 50 ML IV SCH ×2 (05:10→13:54)
[2019-01-21] MEDS: NS 1,000 ML IV SCH (06:39)
[2019-01-21] MEDS: HUMALOG SUBQ SCH ×3 (06:53→12:46)
[2019-01-21 07:05] LABS: HEMATOCRIT 29.9 % (37.0-47.0); HEMOGLOBIN 9.2 g/dL (12.0-16.0)
[2019-01-21 07:30] LABS: AGAP 14; BUN 10 mg/dL (8-22); CALCIUM 7.7 mg/dL (8.8-10.2); CHLORIDE 106 mmol/L (98-107); COSMO 280; CREATININE 0.6 mg/dL (0.5-0.9); ESTIMATED GFR > 60; GLUCOSE 64 mg/dL (70-104); SODIUM 142 mmol/L (136-145); TCO2 22 mmol/L (25-35)
--- NOTE | 2019-01-21 10:50 | DISCHARGE SUMMARY ---
ADMISSION DATE: 01/01/2019 DISCHARGE DATE: 01/21/2019 PATIENT'S LENGTH OF STAY: 20 days. INVASIVE PROCEDURES DONE DURING THIS ADMISSION: A left femoral artery anterograde access with ultrasound guidance, a left popliteal artery balloon angioplasty and a left anterior tibial artery balloon angioplasty was done by Dr. Ward on 01/16/2019 because of a nonhealing amputation site of the left 4th toe. ADMISSION DIAGNOSIS: 1. Sepsis, likely left foot osteomyelitis. 2. Elevated bilirubin. 3. Diabetes mellitus. 4. Hypertension. 5. Metabolic encephalopathy. DIAGNOSIS AT THE TIME OF DISCHARGE: 1. Altered mental status on presentation secondary to infectious encephalopathy, improved. 2. Staph epidermidis (methicillin resistant Staphylococcus aureus) bacteremia. The patient was treated with daptomycin for a total of 14 days. Repeat blood cultures were negative. 3. 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 The patient is currently on cefepime. Infectious Disease is on board. Apparently will be taking this for some time. 4. Nonhealing foot wound on the left. Continue with wound care. 5. Severe peripheral vascular disease. The patient is status post balloon angioplasty of the left peroneal and anterior tibial arteries by Dr. Ward. 6. History of Alzheimer's dementia. 7. Diabetes mellitus controlled on insulin regimen. 8. Generalized weakness and deconditioning. 9. History of pelvic ramus fracture. 10. Protein calorie malnutrition. DISCHARGE MEDICATIONS: 1. Albuterol inhalers. 2. Sertraline 50 mg p.o. daily. 3. Janumet 1 tablet b.i.d. 4. Donepezil 5 mg p.o. daily. 5. Insulin glargine 30 units subcutaneous daily. 6. Lactobacillus. 7. Aspirin 81 mg p.o. daily. 8. Oxycodone 5 mg p.o. q.6h p.r.n. 9. Plavix 75 mg p.o. daily. 10. Pravastatin 40 mg p.o. daily. 11. Amlodipine 2.5 p.o. daily. 12. Cefepime, both dose and duration to be determined by ID. MICROBIOLOGY DATA OF SIGNIFICANCE: 1. Wound culture done on 12/07/2018 grew Pseudomonas aeruginosa. 2. Blood culture on 01/01/2019 grew Staphylococcus epidermidis (MRSA). 3. Subsequent blood cultures have been 5 days negative. PRESENTING COMPLAINT: Encephalopathy. HISTORY OF PRESENTING COMPLAINT: Ms. Nelson is an 83-year-old female who has history of hypertension, depression, recently amputated left 4th digit, was brought from [facility] because of altered mental status. Upon presenting, she was evaluated and admitted for further medical care. HOSPITAL COURSE: Ms. Nelson was admitted to the medical floor under tele monitoring, was initially fluid resuscitated and her diabetes was controlled on insulin regimen. She was started on broad-spectrum IV antimicrobial therapy. During the hospital course, her blood cultures came back positive for MRSA. The patient was switched to daptomycin and she was treated with 14 days after blood cultures came back negative by ID. She has completed the treatment for the bacteremia during the hospital course. Ms. Nelson also had nonhealing amputation wound site. Surgery was consulted. The patient was seen by Dr. Ward. Angioplasty of the left peroneal and the anterior tibial arteries was done in an attempt to improve circulation to the nonhealing ulcer. Postoperatively, Ms. Nelson remained stable. During the hospital course, Ms. Nelson was also seen on multiple occasions by physical therapy as well as Wound Care nurse. Ms Nelson was also seen by a storyboard artist and recommendations were made for her protein calorie nutritional status. Today, Ms. Nelson is stable. Her vitals remain stable with a blood pressure of 158/72, pulse is 84, respirations 16, temperature is 98 degrees. We think she is stable for discharge back to rehab. She was evaluated yesterday by Surgery and Dr. Crabtree does not think any acute surgery needs to be done at this point and that Ms. Nelson will need to follow up with Dr. Prasad who has seen her in the past. Ms. Nelson is being discharged to rehab today. All the discharge instructions have been discussed with her. She voiced understanding. Time spent for discharge is 38 minutes. cc: Sami Vidal MD
[2019-01-21] MEDS ORDERED: D50W SYRINGE ONE (12:06)
[2019-01-21] MEDS ORDERED: D50W SYRINGE IV ONE (12:06)
[2019-01-21] MEDS ORDERED: D50W SYRINGE IV PRN (12:07)
[2019-01-21] MEDS: NORVASC PO SCH (12:43)
[2019-01-21] MEDS: PRAVACHOL PO SCH (12:44)
[2019-01-21] MEDS: ASPIRIN PO SCH (12:44)
[2019-01-21] MEDS: CULTURELLE PO SCH (12:44)
[2019-01-21] MEDS: NEUTRA-PHOS PO SCH ×2 (12:44→12:45)
[2019-01-21] MEDS: ZOLOFT PO SCH (12:44)
[2019-01-21] MEDS: PLAVIX PO SCH (12:44)
[2019-01-21] MEDS: ARICEPT PO SCH (12:45)
[2019-01-21] MEDS: SANTYL OINT TOP SCH (12:47)
[2019-01-21 13:26] VITALS: BP 148/76
== END 2019-01-21 15:02 | DRG 252 ==
LOC: ED 10:44 → 4N 14:51 → SUATTDRO 14:51
PROVIDERS: ATTEND Internal Medicine